=== PATIENT | female | born 1945 | race Caucasian/White ===

== ENCOUNTER 2018-02-13 20:08 | Emergency (ER) | payer MEDICARE, MEDICAID ==
[~2018-02-13] VITALS: Ht 165.1 cm; Wt 68.0 kg
[~2018-02-13 20:08] MED LIST: ALEN70TA48 PO; AMLO1TAB12 PO; CARCD120C PO; FLUO-1 PO; LORA10TA61 PO; METF-436 PO; METO50TA17 PO; NITR100C6 PO; POTA8TAB8 PO; TRAZ-146 PO
[2018-02-13 20:31] VITALS: BP 138/82
[2018-02-13 21:31] LABS: BASOPHILS % (AUTO) 0.5 % (0-1); EOSINOPHILS # (AUTO) 0.4 X10'3 (0-0.9); EOSINOPHILS % (AUTO) 5.9 % (0-6); HEMATOCRIT 35.6 % (35.0-45.0); HEMOGLOBIN 11.9 g/dl (12.0-16.0); LYMPHOCYTES % (AUTO) 30.7 % (21-51); MEAN CORPUSCULAR HGB CONC 33.3 % (33.0-36.5); MEAN PLATELET VOLUME 7.6 FL (7.4-10.4); MONOCYTES # (AUTO) 0.6 X10'3 (0-0.9); NEUTROPHILS # (AUTO) 3.6 X10'3 (1.8-7.7); NEUTROPHILS % (AUTO) 53.9 % (42-75); PLATELET COUNT 306 X10'3 (140-440); RED BLOOD COUNT 4.24 X10'6 (4.20-5.60); RED CELL DISTRIBUTION WIDTH 15.6 % (11.5-14.5); WHITE BLOOD COUNT 6.7 X10'3 (4.5-11.0)
[2018-02-13] MEDS ORDERED: AMLO1TAB12 PO (21:40)
[2018-02-13] MEDS ORDERED: BACL10TA PO (21:40)
[2018-02-13] MEDS ORDERED: LORA10TA7 PO (21:40)
[2018-02-13] MEDS ORDERED: POTA8TAB8 PO (21:40)
[2018-02-13] MEDS ORDERED: CYCL-1 PO (21:40)
[2018-02-13] MEDS ORDERED: GABA-534 PO (21:40)
[2018-02-13] MEDS ORDERED: OMEP20CA10 PO (21:40)
[2018-02-13] MEDS ORDERED: DILT-35 PO (21:40)
[2018-02-13] MEDS ORDERED: PIOG15TA8 PO (21:40)
[2018-02-13] MEDS ORDERED: NITR100C6 PO (21:40)
[2018-02-13] MEDS ORDERED: FLUO20CA22 PO (21:40)
[2018-02-13] MEDS ORDERED: GLIP10TA11 PO (21:40)
[2018-02-13 21:50] LABS: ALANINE AMINOTRANSFERASE 13 U/L (12-78); ALBUMIN 3.5 G/DL (3.4-5.0); ALBUMIN/GLOBULIN RATIO 0.9 (1.1-1.5); ALKALINE PHOSPHATASE 71 IU/L (46-116); ANION GAP 8 (8-16); ASPARTATE AMINO TRANSFERASE 15 U/L (10-37); BILIRUBIN,TOTAL 0.2 MG/DL (0.1-1.0); BLOOD UREA NITROGEN 22 MG/DL (7-18); BUN/CREATININE RATIO 24.4 (6.6-38.0); CALCIUM 9.2 MG/DL (8.5-10.1); CHLORIDE 105 MMOL/L (99-107); GLUCOSE 144 MG/DL (70-104); POTASSIUM 3.7 MMOL/L (3.5-5.1); SODIUM 143 MMOL/L (135-145); TOTAL CARBON DIOXIDE 30.2 MMOL/L (24-32); TOTAL PROTEIN 7.4 G/DL (6.4-8.2); eGFR 61 ML/MIN
[2018-02-13 22:02] LABS: MAGNESIUM 1.9 MG/DL (1.5-2.4)
== END 2018-02-13 22:39 | disposition home or self-care (01) ==
LOC: ER 20:08
DX: R07.89 Other chest pain (principal); R11.0 Nausea; R06.02 Shortness of breath; E78.00 Pure hypercholesterolemia, unspecified; I10 Essential (primary) hypertension; I25.2 Old myocardial infarction; K21.9 Gastro-esophageal reflux disease without esophagitis; E11.9 Type 2 diabetes mellitus without complications; G89.29 Other chronic pain; Z98.61 Coronary angioplasty status; Z98.890 Other specified postprocedural states; Z88.0 Allergy status to penicillin; Z88.2 Allergy status to sulfonamides; Z88.8 Allergy status to other drugs, medicaments and biological substances; Z79.2 Long term (current) use of antibiotics; Z79.84 Long term (current) use of oral hypoglycemic drugs; Z79.899 Other long term (current) drug therapy
CPT/HCPCS: 36415; 71045; 80053; 83735; 83880; 84484; 85025; 85379; 93005; 99285

== ENCOUNTER 2018-03-12 12:31 | Emergency (ER) | payer MEDICARE, MEDICAID ==
[~2018-03-12] VITALS: Ht 165.1 cm; Wt 63.6 kg
[~2018-03-12 12:31] MED LIST changes: -ALEN70TA48 PO; +BACL10TA PO; -CARCD120C PO; +CYCL-1 PO; +DILT-35 PO; -FLUO-1 PO; +FLUO20CA22 PO; +GABA-534 PO; +GLIP10TA11 PO; -LORA10TA61 PO; +LORA10TA7 PO; -METO50TA17 PO; +OMEP20CA10 PO; +PIOG15TA8 PO; -TRAZ-146 PO
[2018-03-12 13:18] LABS: BASOPHILS % (AUTO) 0.3 % (0-1); EOSINOPHILS # (AUTO) 0.4 X10'3 (0-0.9); EOSINOPHILS % (AUTO) 7.3 % (0-6); HEMATOCRIT 32.3 % (35.0-45.0); HEMOGLOBIN 10.8 g/dl (12.0-16.0); LYMPHOCYTES # (AUTO) 1.6 X10'3 (1.1-4.8); LYMPHOCYTES % (AUTO) 30.1 % (21-51); MEAN CORPUSCULAR HEMOGLOBIN 27.7 PG (27.0-31.0); MEAN CORPUSCULAR HGB CONC 33.3 % (33.0-36.5); MEAN CORPUSCULAR VOLUME 82.9 FL (78-98); MONOCYTES # (AUTO) 0.5 X10'3 (0-0.9); MONOCYTES % (AUTO) 8.4 % (2-12); NEUTROPHILS % (AUTO) 53.9 % (42-75); PLATELET COUNT 258 X10'3 (140-440); RED BLOOD COUNT 3.89 X10'6 (4.20-5.60); RED CELL DISTRIBUTION WIDTH 16.2 % (11.5-14.5); WHITE BLOOD COUNT 5.5 X10'3 (4.5-11.0)
[2018-03-12] MEDS ORDERED: mag hydrox/Alum hydrox/simeth 30ml oral suspension PO ONE (13:25)
[2018-03-12] MEDS ORDERED: LORazepam 2 mg/ml vial IV ONE (13:25)
[2018-03-12] MEDS ORDERED: LIDOcaine Viscous 15ml cup PO ONE (13:25)
[2018-03-12 13:31] LABS: PARTIAL THROMBOPLASTIN TIME 24 SECONDS (22-32); PROTHROMBIN TIME 10.1 SECONDS (9.0-12.0)
[2018-03-12 13:37] LABS: ALANINE AMINOTRANSFERASE 16 U/L (12-78); ALBUMIN 3.4 G/DL (3.4-5.0); ALKALINE PHOSPHATASE 67 IU/L (46-116); ANION GAP 8 (8-16); ASPARTATE AMINO TRANSFERASE 23 U/L (10-37); BILIRUBIN,TOTAL 0.3 MG/DL (0.1-1.0); BLOOD UREA NITROGEN 12 MG/DL (7-18); BUN/CREATININE RATIO 13.5 (6.6-38.0); CALCIUM 8.6 MG/DL (8.5-10.1); CHLORIDE 107 MMOL/L (99-107); CREATININE 0.89 MG/DL (0.40-0.90); GLUCOSE 114 MG/DL (70-104); POTASSIUM 3.5 MMOL/L (3.5-5.1); SODIUM 143 MMOL/L (135-145); TOTAL CARBON DIOXIDE 27.6 MMOL/L (24-32); TOTAL PROTEIN 6.9 G/DL (6.4-8.2); eGFR 62 ML/MIN
[2018-03-12 13:44] LABS: LIPASE 153 U/L (73-393); MAGNESIUM 1.3 MG/DL (1.5-2.4)
[2018-03-12 15:36] VITALS: BP 151/89
== END 2018-03-12 16:53 | disposition home or self-care (01) ==
LOC: ER 12:32
DX: R07.9 Chest pain, unspecified (principal); E78.00 Pure hypercholesterolemia, unspecified; I10 Essential (primary) hypertension; I25.2 Old myocardial infarction; K21.9 Gastro-esophageal reflux disease without esophagitis; E11.9 Type 2 diabetes mellitus without complications; Z90.89 Acquired absence of other organs; Z88.0 Allergy status to penicillin; Z88.2 Allergy status to sulfonamides; Z79.899 Other long term (current) drug therapy; Z79.84 Long term (current) use of oral hypoglycemic drugs
CPT/HCPCS: 36415; 71045; 80053; 82948; 83690; 83735; 83880; 84484; 85025; 85610; 85730; 93005; 96374; 99285; J2060

== ENCOUNTER 2018-03-13 20:28 | Emergency (ER) | payer MEDICARE, MEDICAID ==
[~2018-03-13] VITALS: Ht 167.6 cm; Wt 61.0 kg
[2018-03-13 21:28] VITALS: BP 135/71
== END 2018-03-13 21:39 | disposition home or self-care (01) ==
LOC: ER 20:28
DX: F41.9 Anxiety disorder, unspecified (principal); E78.00 Pure hypercholesterolemia, unspecified; I10 Essential (primary) hypertension; I25.2 Old myocardial infarction; K21.9 Gastro-esophageal reflux disease without esophagitis; E11.9 Type 2 diabetes mellitus without complications; G89.29 Other chronic pain; Z98.61 Coronary angioplasty status; Z90.89 Acquired absence of other organs; Z88.0 Allergy status to penicillin; Z88.2 Allergy status to sulfonamides; Z88.8 Allergy status to other drugs, medicaments and biological substances; Z79.84 Long term (current) use of oral hypoglycemic drugs; Z79.899 Other long term (current) drug therapy
CPT/HCPCS: 93005; 99284

== ENCOUNTER 2018-03-16 17:51 | Emergency (ER) | payer MEDICARE, MEDICAID ==
[~2018-03-16] VITALS: Ht 578.2 cm; Wt 59.1 kg
[2018-03-16 18:11] LABS: BASOPHILS % (AUTO) 0.2 % (0-1); EOSINOPHILS # (AUTO) 0.4 X10'3 (0-0.9); HEMATOCRIT 35.9 % (35.0-45.0); HEMOGLOBIN 12.2 g/dl (12.0-16.0); LYMPHOCYTES # (AUTO) 2.1 X10'3 (1.1-4.8); LYMPHOCYTES % (AUTO) 30.1 % (21-51); MEAN CORPUSCULAR HGB CONC 34.1 % (33.0-36.5); MEAN CORPUSCULAR VOLUME 82.1 FL (78-98); MEAN PLATELET VOLUME 7.3 FL (7.4-10.4); MONOCYTES # (AUTO) 0.6 X10'3 (0-0.9); MONOCYTES % (AUTO) 8.2 % (2-12); NEUTROPHILS # (AUTO) 3.8 X10'3 (1.8-7.7); NEUTROPHILS % (AUTO) 55.5 % (42-75); PLATELET COUNT 311 X10'3 (140-440); RED BLOOD COUNT 4.37 X10'6 (4.20-5.60); RED CELL DISTRIBUTION WIDTH 16.7 % (11.5-14.5); WHITE BLOOD COUNT 6.9 X10'3 (4.5-11.0)
[2018-03-16 18:23] LABS: INR 0.9 INR; PARTIAL THROMBOPLASTIN TIME 25 SECONDS (22-32); PROTHROMBIN TIME 9.8 SECONDS (9.0-12.0)
[2018-03-16 18:27] LABS: ALANINE AMINOTRANSFERASE 21 U/L (12-78); ALBUMIN 3.6 G/DL (3.4-5.0); ALBUMIN/GLOBULIN RATIO 0.8 (1.1-1.5); ALKALINE PHOSPHATASE 72 IU/L (46-116); ANION GAP 10 (8-16); ASPARTATE AMINO TRANSFERASE 20 U/L (10-37); BILIRUBIN,TOTAL 0.2 MG/DL (0.1-1.0); BLOOD UREA NITROGEN 14 MG/DL (7-18); BUN/CREATININE RATIO 14.4 (6.6-38.0); CALCIUM 9.3 MG/DL (8.5-10.1); CHLORIDE 105 MMOL/L (99-107); CREATININE 0.97 MG/DL (0.40-0.90); GLUCOSE 177 MG/DL (70-104); POTASSIUM 3.3 MMOL/L (3.5-5.1); SODIUM 141 MMOL/L (135-145); TOTAL CARBON DIOXIDE 25.9 MMOL/L (24-32); TOTAL PROTEIN 7.9 G/DL (6.4-8.2); eGFR 56 ML/MIN
[2018-03-16 19:54] VITALS: BP 156/87
== END 2018-03-16 20:18 | disposition home or self-care (01) ==
LOC: ER 17:51
DX: R07.9 Chest pain, unspecified (principal); E78.00 Pure hypercholesterolemia, unspecified; I10 Essential (primary) hypertension; I25.2 Old myocardial infarction; K21.9 Gastro-esophageal reflux disease without esophagitis; E11.9 Type 2 diabetes mellitus without complications; G89.29 Other chronic pain; Z90.89 Acquired absence of other organs; Z98.61 Coronary angioplasty status; Z88.0 Allergy status to penicillin; Z79.2 Long term (current) use of antibiotics; Z79.84 Long term (current) use of oral hypoglycemic drugs; Z79.899 Other long term (current) drug therapy
CPT/HCPCS: 36415; 71045; 80053; 84484; 85025; 85610; 85730; 93005; 99285

== ENCOUNTER 2018-04-08 19:25 | Emergency (ER) | payer MEDICARE, MEDICAID ==
[~2018-04-08] VITALS: Ht 165.1 cm; Wt 56.0 kg
[2018-04-08] MEDS ORDERED: normal saline 1000ML IV soln IVB ONE (19:40)
[2018-04-08] MEDS ORDERED: morphine 4 MG/ML inj SYRINge IV PRN (19:40)
[2018-04-08 20:03] LABS: ALANINE AMINOTRANSFERASE 19 U/L (12-78); ALBUMIN 3.8 G/DL (3.4-5.0); ALKALINE PHOSPHATASE 63 IU/L (46-116); ANION GAP 8 (8-16); ASPARTATE AMINO TRANSFERASE 22 U/L (10-37); BILIRUBIN,TOTAL 0.3 MG/DL (0.1-1.0); BLOOD UREA NITROGEN 16 MG/DL (7-18); BUN/CREATININE RATIO 14.4 (6.6-38.0); CHLORIDE 104 MMOL/L (99-107); CREATININE 1.11 MG/DL (0.40-0.90); GLUCOSE 208 MG/DL (70-104); LIPASE 192 U/L (73-393); POTASSIUM 3.1 MMOL/L (3.5-5.1); SODIUM 141 MMOL/L (135-145); TOTAL CARBON DIOXIDE 28.7 MMOL/L (24-32); TOTAL PROTEIN 7.5 G/DL (6.4-8.2); eGFR 48 ML/MIN
[2018-04-08 20:04] LABS: BASOPHILS # (AUTO) 0.1 X10'3 (0-0.2); BASOPHILS % (AUTO) 0.8 % (0-1); EOSINOPHILS # (AUTO) 0.3 X10'3 (0-0.9); EOSINOPHILS % (AUTO) 4.3 % (0-6); HEMATOCRIT 39.5 % (35.0-45.0); HEMOGLOBIN 12.9 g/dl (12.0-16.0); LYMPHOCYTES # (AUTO) 2.5 X10'3 (1.1-4.8); LYMPHOCYTES % (AUTO) 33.4 % (21-51); MEAN CORPUSCULAR HEMOGLOBIN 26.8 PG (27.0-31.0); MEAN CORPUSCULAR HGB CONC 32.8 % (33.0-36.5); MEAN CORPUSCULAR VOLUME 81.8 FL (78-98); MEAN PLATELET VOLUME 7.8 FL (7.4-10.4); MONOCYTES # (AUTO) 0.7 X10'3 (0-0.9); NEUTROPHILS # (AUTO) 3.8 X10'3 (1.8-7.7); NEUTROPHILS % (AUTO) 51.5 % (42-75); PLATELET COUNT 351 X10'3 (140-440); RED BLOOD COUNT 4.83 X10'6 (4.20-5.60); RED CELL DISTRIBUTION WIDTH 15.1 % (11.5-14.5); WHITE BLOOD COUNT 7.4 X10'3 (4.5-11.0)
[2018-04-08 20:46] LABS: CLARITY,URINE CLOUDY (Clear); COLOR,URINE YELLOW (Yellow); GLUCOSE, URINE NEGATIVE (Neg); KETONES,URINE TRACE mg/dl (Neg); LEUKOCYTE ESTERASE ,URINE MODERATE (Neg); NITRITES, URINE NEGATIVE (Neg); OCCULT BLOOD,URINE NEGATIVE (Neg); PROTEIN,URINE NEGATIVE (Neg)
[2018-04-08] MEDS ORDERED: potassium Cl 20 mEq SR tablet PO ONE (20:50)
[2018-04-08 20:54] LABS: UA COLLECTION TYPE STRAIGHT CATH
[2018-04-08 20:55] LABS: BACTERIA,URINE 4+ /HPF (Neg); RBC,URINE NONE SEEN /HPF (0-2); SQUAMOUS EPITHELIAL CELL,UR FEW /LPF (FEW); WBC,URINE 20-30 /HPF (0-4)
[2018-04-08] MEDS ORDERED: ciprofloxacin 250mg tablet PO ONE (21:05)
[2018-04-08] MEDS ORDERED: CIPR-230 PO (21:06)
[2018-04-08 21:18] VITALS: BP 166/94
== END 2018-04-08 21:19 | disposition home or self-care (01) ==
LOC: ER 19:26
DX: N83.9 Noninflammatory disorder of ovary, fallopian tube and broad ligament, unspecified (principal); E78.00 Pure hypercholesterolemia, unspecified; I10 Essential (primary) hypertension; I25.2 Old myocardial infarction; K21.9 Gastro-esophageal reflux disease without esophagitis; E11.9 Type 2 diabetes mellitus without complications; G89.29 Other chronic pain; Z98.61 Coronary angioplasty status; Z98.890 Other specified postprocedural states; Z88.0 Allergy status to penicillin; Z88.2 Allergy status to sulfonamides; Z88.8 Allergy status to other drugs, medicaments and biological substances; Z79.84 Long term (current) use of oral hypoglycemic drugs; Z79.899 Other long term (current) drug therapy
CPT/HCPCS: 36415; 74176; 80053; 81001; 83690; 85025; 87077; 87088; 87186; 96374; 99285; J2270; J7030

== ENCOUNTER 2018-05-14 15:07 | Emergency (ER) | payer MEDICARE, MEDICAID ==
[~2018-05-14] VITALS: Ht 165.1 cm; Wt 59.0 kg
[2018-05-14] MEDS ORDERED: normal saline 1000ML IV soln IVB ONE (15:30)
[2018-05-14] MEDS ORDERED: morphine 4 MG/ML inj SYRINge IV PRN (15:30)
[2018-05-14] MEDS ORDERED: ondansetron/PF 4mg/2ml inj IV ONE (15:30)
[2018-05-14 15:51] LABS: BASOPHILS % (AUTO) 0.2 % (0-1); EOSINOPHILS # (AUTO) 0.4 X10'3 (0-0.9); EOSINOPHILS % (AUTO) 4.8 % (0-6); HEMOGLOBIN 12.3 g/dl (12.0-16.0); LYMPHOCYTES # (AUTO) 1.6 X10'3 (1.1-4.8); MEAN CORPUSCULAR HEMOGLOBIN 27.5 PG (27.0-31.0); MEAN CORPUSCULAR HGB CONC 33.2 % (33.0-36.5); MEAN CORPUSCULAR VOLUME 82.8 FL (78-98); MONOCYTES # (AUTO) 0.7 X10'3 (0-0.9); MONOCYTES % (AUTO) 7.6 % (2-12); NEUTROPHILS % (AUTO) 69.4 % (42-75); PLATELET COUNT 322 X10'3 (140-440); RED BLOOD COUNT 4.46 X10'6 (4.20-5.60); RED CELL DISTRIBUTION WIDTH 17.8 % (11.5-14.5); WHITE BLOOD COUNT 8.7 X10'3 (4.5-11.0)
[2018-05-14 16:03] LABS: CLARITY,URINE CLOUDY (Clear); COLOR,URINE YELLOW (Yellow); GLUCOSE, URINE NEGATIVE (Neg); KETONES,URINE NEGATIVE (Neg); LEUKOCYTE ESTERASE ,URINE LARGE (Neg); NITRITES, URINE NEGATIVE (Neg); OCCULT BLOOD,URINE TRACE-INTACT (Neg); PROTEIN,URINE TRACE mg/dl (Neg); UROBILINOGEN,URINE 0.2 E.U/dL (0.2-1.0)
[2018-05-14 16:05] LABS: UA COLLECTION TYPE CLN CATCH MIDSTREAM
[2018-05-14 16:05] LABS: ALANINE AMINOTRANSFERASE 15 U/L (12-78); ALBUMIN 3.4 G/DL (3.4-5.0); ALBUMIN/GLOBULIN RATIO 0.8 (1.1-1.5); ALKALINE PHOSPHATASE 82 IU/L (46-116); ANION GAP 11 (8-16); ASPARTATE AMINO TRANSFERASE 13 U/L (10-37); BILIRUBIN,TOTAL 0.4 MG/DL (0.1-1.0); BLOOD UREA NITROGEN 25 MG/DL (7-18); BUN/CREATININE RATIO 26.3 (6.6-38.0); CALCIUM 9.3 MG/DL (8.5-10.1); CHLORIDE 103 MMOL/L (99-107); CREATININE 0.95 MG/DL (0.40-0.90); GLUCOSE 182 MG/DL (70-104); LIPASE 142 U/L (73-393); POTASSIUM 3.6 MMOL/L (3.5-5.1); SODIUM 140 MMOL/L (135-145); TOTAL CARBON DIOXIDE 26.1 MMOL/L (24-32); TOTAL PROTEIN 7.7 G/DL (6.4-8.2); eGFR 58 ML/MIN
[2018-05-14] MEDS ORDERED: iohexol 300mg/ml 100ml inj. ONE (16:10)
[2018-05-14 16:12] LABS: MUCUS STRANDS MODERATE /LPF (Neg); SQUAMOUS EPITHELIAL CELL,UR MODERATE /LPF (FEW)
[2018-05-14 16:16] LABS: BACTERIA,URINE 4+ /HPF (Neg); RBC,URINE NONE SEEN /HPF (0-2); TRANSITIONAL EPI CELLS,URINE FEW /HPF; WBC,URINE 50-100 /HPF (0-4)
[2018-05-14] MEDS ORDERED: CIPR-230 PO (18:14)
[2018-05-14] MEDS ORDERED: ACET-3067 PO (18:17)
[2018-05-14] MEDS ORDERED: ciprofloxacin lact 400MG/200ML 200 ML IV ONE (18:20)
[2018-05-14 19:56] VITALS: BP 122/63
== END 2018-05-14 20:40 | disposition home or self-care (01) ==
LOC: ER 15:08
DX: S22.089A Unspecified fracture of T11-T12 vertebra, initial encounter for closed fracture (principal); S32.039A Unspecified fracture of third lumbar vertebra, initial encounter for closed fracture; N39.0 Urinary tract infection, site not specified; N83.9 Noninflammatory disorder of ovary, fallopian tube and broad ligament, unspecified; K57.30 Diverticulosis of large intestine without perforation or abscess without bleeding; E78.00 Pure hypercholesterolemia, unspecified; I10 Essential (primary) hypertension; I25.2 Old myocardial infarction; K21.9 Gastro-esophageal reflux disease without esophagitis; E11.9 Type 2 diabetes mellitus without complications; G89.29 Other chronic pain; Z98.61 Coronary angioplasty status; Z98.890 Other specified postprocedural states; Z88.0 Allergy status to penicillin; Z88.2 Allergy status to sulfonamides; Z88.8 Allergy status to other drugs, medicaments and biological substances; Z79.2 Long term (current) use of antibiotics; Z79.899 Other long term (current) drug therapy; X58.XXXA Exposure to other specified factors, initial encounter; Y93.89 Activity, other specified; Y92.89 Other specified places as the place of occurrence of the external cause; Y99.8 Other external cause status
CPT/HCPCS: 36415; 74177; 80053; 81001; 83690; 85025; 87077; 87088; 87186; 96365; 96375; 99285; J0744; J2270; J2405; J7030; Q9967

== ENCOUNTER 2018-05-18 20:09 | Inpatient (IN) | payer MEDICARE, MEDICAID ==
[~2018-05-18] VITALS: Ht 167.6 cm; Wt 59.0 kg
[~2018-05-18 20:09] MED LIST changes: +ACET-3067 PO; +CIPR-230 PO
[2018-05-18 21:22] LABS: BASOPHILS % (AUTO) 0.4 % (0-1); EOSINOPHILS # (AUTO) 0.4 X10'3 (0-0.9); HEMATOCRIT 34.8 % (35.0-45.0); HEMOGLOBIN 11.4 g/dl (12.0-16.0); LYMPHOCYTES # (AUTO) 1.5 X10'3 (1.1-4.8); LYMPHOCYTES % (AUTO) 13.7 % (21-51); MEAN CORPUSCULAR HEMOGLOBIN 26.9 PG (27.0-31.0); MEAN CORPUSCULAR HGB CONC 32.7 % (33.0-36.5); MEAN CORPUSCULAR VOLUME 82.3 FL (78-98); MEAN PLATELET VOLUME 7.8 FL (7.4-10.4); MONOCYTES # (AUTO) 0.9 X10'3 (0-0.9); NEUTROPHILS % (AUTO) 73.9 % (42-75); PLATELET COUNT 406 X10'3 (140-440); RED BLOOD COUNT 4.22 X10'6 (4.20-5.60); RED CELL DISTRIBUTION WIDTH 17.9 % (11.5-14.5); WHITE BLOOD COUNT 10.9 X10'3 (4.5-11.0)
[2018-05-18 21:38] LABS: ALANINE AMINOTRANSFERASE 14 U/L (12-78); ALBUMIN 3.2 G/DL (3.4-5.0); ALBUMIN/GLOBULIN RATIO 0.7 (1.1-1.5); ALKALINE PHOSPHATASE 97 IU/L (46-116); AMYLASE 34 U/L (25-115); ANION GAP 11 (8-16); ASPARTATE AMINO TRANSFERASE 14 U/L (10-37); BILIRUBIN,TOTAL 0.2 MG/DL (0.1-1.0); BLOOD UREA NITROGEN 32 MG/DL (7-18); BUN/CREATININE RATIO 31.4 (6.6-38.0); CHLORIDE 101 MMOL/L (99-107); CREATININE 1.02 MG/DL (0.40-0.90); GLUCOSE 208 MG/DL (70-104); LIPASE 125 U/L (73-393); POTASSIUM 4.1 MMOL/L (3.5-5.1); SODIUM 139 MMOL/L (135-145); TOTAL CARBON DIOXIDE 27.5 MMOL/L (24-32); TOTAL PROTEIN 7.6 G/DL (6.4-8.2); eGFR 53 ML/MIN
[2018-05-18 21:42] LABS: CALCIUM 9.2 MG/DL (8.5-10.1)
[2018-05-18] MEDS ORDERED: ondansetron/PF 4mg/2ml inj IV ONE (23:10)
[2018-05-18] MEDS ORDERED: normal saline 1000ml 1,000 ML IV ONE (23:10)
[2018-05-18] MEDS ORDERED: morphine 4 MG/ML inj SYRINge IV ONE (23:10)
[2018-05-18] MEDS ORDERED: iohexol 300mg/ml 100ml inj. ONE (23:16)
[2018-05-19 00:14] LABS: CLARITY,URINE SLIGHTLY CLOUDY (Clear); COLOR,URINE YELLOW (Yellow); GLUCOSE, URINE NEGATIVE (Neg); KETONES,URINE NEGATIVE (Neg); LEUKOCYTE ESTERASE ,URINE MODERATE (Neg); NITRITES, URINE POSITIVE (Neg); OCCULT BLOOD,URINE TRACE-INTACT (Neg); PH,URINE 5.5 (4.8-8.0); PROTEIN,URINE NEGATIVE (Neg); UROBILINOGEN,URINE 0.2 E.U/dL (0.2-1.0)
[2018-05-19 00:16] LABS: UA COLLECTION TYPE CLN CATCH MIDSTREAM
[2018-05-19 00:23] LABS: BACTERIA,URINE 4+ /HPF (Neg); RBC,URINE 0-2 /HPF (0-2); SQUAMOUS EPITHELIAL CELL,UR MODERATE /LPF (FEW); WBC,URINE 30-50 /HPF (0-4)
[2018-05-19] MEDS ORDERED: metroNIDAZOLE-Flagyl 500mg/NS 100 ML IV STA (00:43)
[2018-05-19] MEDS ORDERED: mag hydrox/Alum hydrox/simeth 30ml oral suspension PO PRN (02:25)
[2018-05-19] MEDS ORDERED: morphine 2 MG/ML inj. syringe IV PRN ×2 (02:25)
[2018-05-19] MEDS ORDERED: magnesium hydroxide 30ml (MOM) UD suspension PO PRN (02:25)
[2018-05-19] MEDS ORDERED: diphenhydrAMINE 25mg capsule PO PRN (02:25)
[2018-05-19] MEDS ORDERED: ondansetron/PF 4mg/2ml inj IV PRN (02:25)
[2018-05-19] MEDS ORDERED: diphenhydrAMINE 50 mg/ml inj IV PRN (02:25)
[2018-05-19] MEDS ORDERED: dextrose ORAL solution 15 GM/59 ML bottle PO PRN ×2 (02:25)
[2018-05-19] MEDS ORDERED: HYDROmorphone 1 mg/ml syringe IV PRN ×2 (02:25)
[2018-05-19] MEDS ORDERED: metoclopramide 5 mg/ml inj IV PRN (02:25)
[2018-05-19] MEDS ORDERED: cyclobenzaprine 10mg tablet PO PRN (02:25)
[2018-05-19] MEDS ORDERED: acetaminophen 325mg tablet PO PRN (02:25)
[2018-05-19] MEDS ORDERED: MESSAGE TO PHARMACY PO ONE (02:25)
[2018-05-19] MEDS ORDERED: bisacodyl 10mg suppository rectal RC PRN (02:25)
[2018-05-19] MEDS ORDERED: HYDROcodone/acetaminophen 10/325mg tab PO PRN (02:25)
[2018-05-19] MEDS ORDERED: acetaminophen 650mg rectal suppository RC PRN (02:25)
[2018-05-19] MEDS ORDERED: dextrose 50%-water 50ml dispensing syringe IV PRN ×2 (02:25)
[2018-05-19] MEDS ORDERED: HYDROcodone/acetaminophen 5mg/325mg tablet PO PRN (02:25)
[2018-05-19] MEDS ORDERED: insulin Lispro (HumaLOG) vial - multi-dose SQ SCH (02:25)
[2018-05-19] MEDS ORDERED: glucagon, human recombinant 1mg kit SUBCUT PRN (02:25)
[2018-05-19 02:55] LABS: HEMOGLOBIN A1C 6.7 % (4.5-6.2)
[2018-05-19] MEDS ORDERED: ciprofloxacin lact 400MG/200ML 200 ML IV ONE (03:00)
[2018-05-19] MEDS: normal saline 1000ml 1,000 ML IV SCH ×3 (03:11→21:24)
[2018-05-19] MEDS: diltiazem CD 120mg capsule (once-daily) PO SCH (07:44)
[2018-05-19] MEDS: pantoprazole 40mg Tablet.DR PO SCH (07:44)
[2018-05-19] MEDS: gabapentin 400mg capsule PO SCH ×3 (07:44→21:24)
[2018-05-19] MEDS: metroNIDAZOLE-Flagyl 500mg/NS 100 ML IV SCH ×2 (07:45→21:24)
[2018-05-19] MEDS: losartan 50mg tablet PO SCH (07:45)
[2018-05-19] MEDS: amLODIPine 5mg tablet PO SCH (07:45)
[2018-05-19] MEDS: docusate sod 100mg capsule PO SCH ×2 (07:45→21:25)
[2018-05-19] MEDS: FLUoxetine 20mg capsule PO SCH (07:45)
[2018-05-19] MEDS: baclofen 10mg tablet PO SCH ×3 (10:46→21:24)
[2018-05-19] MEDS: ciprofloxacin lact 400MG/200ML 200 ML IV SCH (15:15)
[2018-05-19 19:00] VITALS: BP 113/61
[2018-05-19] MEDS ORDERED: temazepam 15mg capsule PO PRN (21:00)
[2018-05-19] MEDS: lactobacillus rhamnosus 10,000 MMU CELLS/CAPSULE PO SCH (21:24)
[2018-05-19 23:00] VITALS: BP 140/62
[2018-05-20 03:00] VITALS: BP 97/44
[2018-05-20] MEDS: ciprofloxacin lact 400MG/200ML 200 ML IV SCH (03:29)
[2018-05-20 06:00] VITALS: BP 124/61
[2018-05-20 06:10] LABS: BASOPHILS % (AUTO) 0.4 % (0-1); EOSINOPHILS # (AUTO) 0.6 X10'3 (0-0.9); EOSINOPHILS % (AUTO) 8.1 % (0-6); HEMATOCRIT 31.9 % (35.0-45.0); HEMOGLOBIN 10.6 g/dl (12.0-16.0); LYMPHOCYTES # (AUTO) 1.3 X10'3 (1.1-4.8); LYMPHOCYTES % (AUTO) 16.7 % (21-51); MEAN CORPUSCULAR HEMOGLOBIN 27.7 PG (27.0-31.0); MEAN CORPUSCULAR HGB CONC 33.4 % (33.0-36.5); MEAN PLATELET VOLUME 7.9 FL (7.4-10.4); MONOCYTES # (AUTO) 0.8 X10'3 (0-0.9); MONOCYTES % (AUTO) 9.5 % (2-12); NEUTROPHILS # (AUTO) 5.2 X10'3 (1.8-7.7); NEUTROPHILS % (AUTO) 65.3 % (42-75); PLATELET COUNT 397 X10'3 (140-440); RED BLOOD COUNT 3.84 X10'6 (4.20-5.60); RED CELL DISTRIBUTION WIDTH 18.3 % (11.5-14.5)
[2018-05-20 06:36] LABS: ALANINE AMINOTRANSFERASE 13 U/L (12-78); ALBUMIN/GLOBULIN RATIO 0.7 (1.1-1.5); ALKALINE PHOSPHATASE 90 IU/L (46-116); ANION GAP 9 (8-16); ASPARTATE AMINO TRANSFERASE 19 U/L (10-37); BILIRUBIN,TOTAL 0.3 MG/DL (0.1-1.0); BLOOD UREA NITROGEN 21 MG/DL (7-18); BUN/CREATININE RATIO 19.4 (6.6-38.0); CALCIUM 8.6 MG/DL (8.5-10.1); CHLORIDE 106 MMOL/L (99-107); CREATININE 1.08 MG/DL (0.40-0.90); GLUCOSE 212 MG/DL (70-104); POTASSIUM 3.7 MMOL/L (3.5-5.1); SODIUM 140 MMOL/L (135-145); TOTAL CARBON DIOXIDE 25.1 MMOL/L (24-32); TOTAL PROTEIN 7.1 G/DL (6.4-8.2); eGFR 50 ML/MIN
[2018-05-20 07:25] LABS: ANISOCYTOSIS 2+; PLATELET ESTIMATE NORMAL
[2018-05-20] MEDS: lactobacillus rhamnosus 10,000 MMU CELLS/CAPSULE PO SCH (07:36)
[2018-05-20] MEDS: gabapentin 400mg capsule PO SCH ×2 (07:36→13:31)
[2018-05-20] MEDS: pantoprazole 40mg Tablet.DR PO SCH (07:37)
[2018-05-20] MEDS: diltiazem CD 120mg capsule (once-daily) PO SCH (07:37)
[2018-05-20] MEDS: docusate sod 100mg capsule PO SCH (07:38)
[2018-05-20] MEDS: baclofen 10mg tablet PO SCH ×2 (07:38→13:32)
[2018-05-20] MEDS: amLODIPine 5mg tablet PO SCH (07:38)
[2018-05-20] MEDS: FLUoxetine 20mg capsule PO SCH (07:39)
[2018-05-20] MEDS: normal saline 1000ml 1,000 ML IV SCH (07:39)
[2018-05-20] MEDS: losartan 50mg tablet PO SCH (07:42)
[2018-05-20] MEDS: metroNIDAZOLE-Flagyl 500mg/NS 100 ML IV SCH (07:43)
[2018-05-20] MEDS ORDERED: METR500T4 PO (09:18)
[2018-05-20 11:00] VITALS: BP 103/58
[2018-05-20] MEDS ORDERED: metroNIDAZOLE 500mg tablet PO SCH (20:00)
[2018-05-20] MEDS ORDERED: ciprofloxacin 250mg tablet PO SCH (22:00)
== END 2018-05-20 16:58 | disposition home or self-care (01) | DRG 690 ==
LOC: ER 20:09 → ED HOLD 05-19 02:24 → EDBEDREQ 05-19 17:26 → PCU 3S 05-19 18:15
PROVIDERS: ADMIT Family Medicine; ATTEND Internal Medicine
PROC: BW211ZZ Computerized Tomography (CT Scan) of Abdomen and Pelvis using Low Osmolar Contrast (ICD-10-PCS; principal; 2018-05-18)
DX: N39.0 Urinary tract infection, site not specified (principal); K57.32 Diverticulitis of large intestine without perforation or abscess without bleeding; I16.1 Hypertensive emergency; I25.10 Atherosclerotic heart disease of native coronary artery without angina pectoris; K21.9 Gastro-esophageal reflux disease without esophagitis; E11.65 Type 2 diabetes mellitus with hyperglycemia; E78.00 Pure hypercholesterolemia, unspecified; F41.0 Panic disorder [episodic paroxysmal anxiety]; M54.9 Dorsalgia, unspecified; I10 Essential (primary) hypertension; G89.29 Other chronic pain; H26.9 Unspecified cataract; I25.2 Old myocardial infarction; Z79.899 Other long term (current) drug therapy; Z79.84 Long term (current) use of oral hypoglycemic drugs; Z88.0 Allergy status to penicillin; Z88.2 Allergy status to sulfonamides; Z88.8 Allergy status to other drugs, medicaments and biological substances
CPT/HCPCS: 36415; 74177; 80053; 81001; 82150; 82948; 83036; 83605; 83690; 85025; 85610; 87040; 87070; 87077; 87088; 87186; 96361; 96365; 96375; 99285; J0744; J2270; J2405; J3490; J7030; Q9967

== ENCOUNTER 2018-07-07 15:11 | Emergency (ER) | payer MEDICARE, MEDICAID ==
[~2018-07-07] VITALS: Ht 166.4 cm; Wt 59.1 kg
[~2018-07-07 15:11] MED LIST changes: -ACET-3067 PO; +ASPI-611 PO; +ATOR40TA PO; -BACL10TA PO; +CARV3.122 PO; -CIPR-230 PO; -DILT-35 PO; -NITR100C6 PO; -PIOG15TA8 PO; -POTA8TAB8 PO
[2018-07-07 15:47] LABS: BASOPHILS % (AUTO) 0.4 % (0-1); EOSINOPHILS # (AUTO) 0.6 X10'3 (0-0.9); EOSINOPHILS % (AUTO) 6.9 % (0-6); HEMATOCRIT 33.3 % (35.0-45.0); HEMOGLOBIN 10.9 g/dl (12.0-16.0); LYMPHOCYTES # (AUTO) 2.1 X10'3 (1.1-4.8); LYMPHOCYTES % (AUTO) 23.6 % (21-51); MEAN CORPUSCULAR HEMOGLOBIN 26.3 PG (27.0-31.0); MEAN CORPUSCULAR HGB CONC 32.8 % (33.0-36.5); MEAN CORPUSCULAR VOLUME 80.2 FL (78-98); MEAN PLATELET VOLUME 7.4 FL (7.4-10.4); MONOCYTES # (AUTO) 0.8 X10'3 (0-0.9); MONOCYTES % (AUTO) 9.7 % (2-12); NEUTROPHILS # (AUTO) 5.2 X10'3 (1.8-7.7); NEUTROPHILS % (AUTO) 59.4 % (42-75); PLATELET COUNT 341 X10'3 (140-440); RED BLOOD COUNT 4.15 X10'6 (4.20-5.60); RED CELL DISTRIBUTION WIDTH 18.1 % (11.5-14.5); WHITE BLOOD COUNT 8.7 X10'3 (4.5-11.0)
[2018-07-07 16:00] LABS: ALANINE AMINOTRANSFERASE 17 U/L (12-78); ALBUMIN 3.1 G/DL (3.4-5.0); ALBUMIN/GLOBULIN RATIO 0.8 (1.1-1.5); ALKALINE PHOSPHATASE 69 IU/L (46-116); ANION GAP 11 (8-16); ASPARTATE AMINO TRANSFERASE 14 U/L (10-37); BILIRUBIN,TOTAL 0.2 MG/DL (0.1-1.0); BLOOD UREA NITROGEN 30 MG/DL (7-18); BUN/CREATININE RATIO 30.6 (6.6-38.0); CALCIUM 9.4 MG/DL (8.5-10.1); CHLORIDE 103 MMOL/L (99-107); CREATININE 0.98 MG/DL (0.40-0.90); GLUCOSE 183 MG/DL (70-104); LIPASE 199 U/L (73-393); POTASSIUM 3.6 MMOL/L (3.5-5.1); SODIUM 141 MMOL/L (135-145); TOTAL CARBON DIOXIDE 27.2 MMOL/L (24-32); TOTAL PROTEIN 7.1 G/DL (6.4-8.2); eGFR 56 ML/MIN
[2018-07-07 16:04] LABS: ANISOCYTOSIS 2+; ELLIPTOCYTES FEW; PLATELET ESTIMATE NORMAL; POIKILOCYTOSIS 1+
[2018-07-07] MEDS ORDERED: HYDROmorphone inj. 0.5 MG/0.5 ML DISP.SYRIN IM ONE (18:15)
[2018-07-07 18:46] LABS: CLARITY,URINE CLOUDY (Clear); COLOR,URINE YELLOW (Yellow); GLUCOSE, URINE NEGATIVE (Neg); KETONES,URINE NEGATIVE (Neg); LEUKOCYTE ESTERASE ,URINE TRACE (Neg); NITRITES, URINE POSITIVE (Neg); OCCULT BLOOD,URINE NEGATIVE (Neg); PROTEIN,URINE NEGATIVE (Neg); UROBILINOGEN,URINE 0.2 E.U/dL (0.2-1.0)
[2018-07-07 18:47] LABS: UA COLLECTION TYPE FOLEY CATH
[2018-07-07 19:01] LABS: BACTERIA,URINE 4+ /HPF (Neg); RBC,URINE NONE SEEN /HPF (0-2)
[2018-07-07 19:06] LABS: SQUAMOUS EPITHELIAL CELL,UR NONE SEEN /LPF (FEW)
[2018-07-07] MEDS ORDERED: levoFLOXACIN-Levaquin 500mg/D5 100 ML IV ONE (20:25)
[2018-07-07] MEDS ORDERED: LEVO500T2 PO (20:58)
[2018-07-07] MEDS ORDERED: METR500T4 PO (20:58)
[2018-07-07 21:54] VITALS: BP 112/66
== END 2018-07-07 22:11 | disposition home or self-care (01) ==
LOC: ER 15:12
DX: K57.92 Diverticulitis of intestine, part unspecified, without perforation or abscess without bleeding (principal); E78.00 Pure hypercholesterolemia, unspecified; I10 Essential (primary) hypertension; I25.2 Old myocardial infarction; K21.9 Gastro-esophageal reflux disease without esophagitis; E11.9 Type 2 diabetes mellitus without complications; G89.29 Other chronic pain; Z98.61 Coronary angioplasty status; Z98.890 Other specified postprocedural states; Z88.0 Allergy status to penicillin; Z88.2 Allergy status to sulfonamides; Z88.8 Allergy status to other drugs, medicaments and biological substances; Z79.82 Long term (current) use of aspirin; Z79.899 Other long term (current) drug therapy; K40.90 Unilateral inguinal hernia, without obstruction or gangrene, not specified as recurrent
CPT/HCPCS: 36415; 74176; 80053; 81001; 83690; 85025; 87077; 87088; 87186; 96365; 96372; 99285; J1170; J1956

== ENCOUNTER 2018-07-09 17:50 | Emergency (ER) | payer MEDICARE, MEDICAID ==
[~2018-07-09] VITALS: Ht 165.1 cm; Wt 59.0 kg
[~2018-07-09 17:50] MED LIST changes: +LEVO500T2 PO; +METR500T4 PO
[2018-07-09] MEDS ORDERED: aspirin 81mg tab.chew PO ONE (19:30)
[2018-07-09 20:02] LABS: BASOPHILS % (AUTO) 0.4 % (0-1); EOSINOPHILS # (AUTO) 0.6 X10'3 (0-0.9); HEMATOCRIT 34.9 % (35.0-45.0); HEMOGLOBIN 11.4 g/dl (12.0-16.0); LYMPHOCYTES # (AUTO) 1.9 X10'3 (1.1-4.8); LYMPHOCYTES % (AUTO) 22.7 % (21-51); MEAN CORPUSCULAR HEMOGLOBIN 26.4 PG (27.0-31.0); MEAN CORPUSCULAR HGB CONC 32.6 % (33.0-36.5); MEAN PLATELET VOLUME 7.4 FL (7.4-10.4); MONOCYTES # (AUTO) 0.5 X10'3 (0-0.9); MONOCYTES % (AUTO) 5.7 % (2-12); NEUTROPHILS # (AUTO) 5.2 X10'3 (1.8-7.7); NEUTROPHILS % (AUTO) 64.2 % (42-75); PLATELET COUNT 380 X10'3 (140-440); RED CELL DISTRIBUTION WIDTH 17.7 % (11.5-14.5); WHITE BLOOD COUNT 8.2 X10'3 (4.5-11.0)
[2018-07-09 20:17] LABS: ALANINE AMINOTRANSFERASE 18 U/L (12-78); ALBUMIN 3.5 G/DL (3.4-5.0); ALBUMIN/GLOBULIN RATIO 0.8 (1.1-1.5); ALKALINE PHOSPHATASE 70 IU/L (46-116); ANION GAP 8 (8-16); ASPARTATE AMINO TRANSFERASE 14 U/L (10-37); BILIRUBIN,TOTAL 0.2 MG/DL (0.1-1.0); BLOOD UREA NITROGEN 29 MG/DL (7-18); BUN/CREATININE RATIO 28.4 (6.6-38.0); CALCIUM 9.7 MG/DL (8.5-10.1); CHLORIDE 104 MMOL/L (99-107); CREATININE 1.02 MG/DL (0.40-0.90); GLUCOSE 120 MG/DL (70-104); POTASSIUM 4.2 MMOL/L (3.5-5.1); SODIUM 141 MMOL/L (135-145); TOTAL CARBON DIOXIDE 29.1 MMOL/L (24-32); TOTAL PROTEIN 7.9 G/DL (6.4-8.2); eGFR 53 ML/MIN
[2018-07-09 20:24] LABS: MAGNESIUM 1.6 MG/DL (1.5-2.4)
[2018-07-09] MEDS ORDERED: acetaminophen 325mg tablet PO ONE (20:25)
[2018-07-09 20:56] VITALS: BP 127/84
[2018-07-09] MEDS ORDERED: normal saline 1000ml 1,000 ML IV ONE (21:05)
[2018-07-09] MEDS ORDERED: ondansetron/PF 4mg/2ml inj IV ONE (22:10)
[2018-07-09] MEDS ORDERED: metroNIDAZOLE 500mg tablet PO ONE (22:10)
[2018-07-09] MEDS ORDERED: CIP750T PO (22:10)
[2018-07-09] MEDS ORDERED: METR500T4 PO ×2 (22:10→22:12)
[2018-07-09] MEDS ORDERED: ciprofloxacin 250mg tablet PO ONE (22:10)
[2018-07-09] MEDS ORDERED: CIPR-230 PO (22:12)
[2018-07-09 22:15] LABS: COLOR,URINE YELLOW (Yellow); GLUCOSE, URINE NEGATIVE (Neg); KETONES,URINE NEGATIVE (Neg); LEUKOCYTE ESTERASE ,URINE NEGATIVE (Neg); NITRITES, URINE POSITIVE (Neg); OCCULT BLOOD,URINE NEGATIVE (Neg); PROTEIN,URINE NEGATIVE (Neg); UROBILINOGEN,URINE 0.2 E.U/dL (0.2-1.0)
[2018-07-09 22:18] LABS: CLARITY,URINE SLIGHTLY CLOUDY (Clear); UA COLLECTION TYPE STRAIGHT CATH
[2018-07-09 22:22] LABS: BACTERIA,URINE 4+ /HPF (Neg); MUCUS STRANDS FEW /LPF (Neg); RBC,URINE NONE SEEN /HPF (0-2); SQUAMOUS EPITHELIAL CELL,UR FEW /LPF (FEW); WBC CLUMPS,URINE FEW /HPF (NEGATIVE)
== END 2018-07-09 22:42 | disposition home or self-care (01) ==
LOC: ER 17:51
DX: K57.32 Diverticulitis of large intestine without perforation or abscess without bleeding (principal); R07.89 Other chest pain; E78.00 Pure hypercholesterolemia, unspecified; I10 Essential (primary) hypertension; I25.2 Old myocardial infarction; K21.9 Gastro-esophageal reflux disease without esophagitis; E11.9 Type 2 diabetes mellitus without complications; G89.29 Other chronic pain; Z95.5 Presence of coronary angioplasty implant and graft; Z90.89 Acquired absence of other organs; Z88.0 Allergy status to penicillin; Z88.2 Allergy status to sulfonamides; Z79.82 Long term (current) use of aspirin; Z79.899 Other long term (current) drug therapy
CPT/HCPCS: 36415; 71045; 74176; 80053; 81001; 83605; 83735; 83880; 84484; 85025; 87077; 87088; 87186; 93005; 96374; 99285; J2405; J7030; P9612; J3490

== ENCOUNTER 2018-07-19 13:06 | Inpatient (IN) | payer MEDICARE, MEDICAID ==
[~2018-07-19] VITALS: Ht 167.6 cm; Wt 59.0 kg
[~2018-07-19 13:06] MED LIST changes: +CIP750T PO; +CIPR-230 PO; -LEVO500T2 PO
[2018-07-19 14:44] LABS: BASOPHILS % (AUTO) 0.3 % (0-1); EOSINOPHILS # (AUTO) 0.3 X10'3 (0-0.9); EOSINOPHILS % (AUTO) 3.7 % (0-6); HEMATOCRIT 33.8 % (35.0-45.0); HEMOGLOBIN 10.8 g/dl (12.0-16.0); LYMPHOCYTES # (AUTO) 1.5 X10'3 (1.1-4.8); LYMPHOCYTES % (AUTO) 20.1 % (21-51); MEAN CORPUSCULAR HEMOGLOBIN 25.8 PG (27.0-31.0); MEAN CORPUSCULAR VOLUME 80.6 FL (78-98); MEAN PLATELET VOLUME 6.7 FL (7.4-10.4); MONOCYTES # (AUTO) 0.5 X10'3 (0-0.9); MONOCYTES % (AUTO) 7.1 % (2-12); NEUTROPHILS % (AUTO) 68.8 % (42-75); PLATELET COUNT 443 X10'3 (140-440); RED BLOOD COUNT 4.19 X10'6 (4.20-5.60); RED CELL DISTRIBUTION WIDTH 17.7 % (11.5-14.5); WHITE BLOOD COUNT 7.3 X10'3 (4.5-11.0)
[2018-07-19 14:52] LABS: PROTHROMBIN TIME 10.1 SECONDS (9.0-12.0)
[2018-07-19] MEDS ORDERED: HYDROcodone/acetaminophen 10/325mg tab PO ONE (15:15)
[2018-07-19] MEDS ORDERED: normal saline 1000ML IV soln IVB ONE (15:20)
[2018-07-19 15:21] LABS: ALANINE AMINOTRANSFERASE 14 U/L (12-78); ALBUMIN 3.4 G/DL (3.4-5.0); ALBUMIN/GLOBULIN RATIO 0.8 (1.1-1.5); ALKALINE PHOSPHATASE 71 IU/L (46-116); ANION GAP 10 (8-16); ASPARTATE AMINO TRANSFERASE 13 U/L (10-37); BILIRUBIN,TOTAL 0.2 MG/DL (0.1-1.0); BLOOD UREA NITROGEN 30 MG/DL (7-18); BUN/CREATININE RATIO 29.4 (6.6-38.0); CALCIUM 9.5 MG/DL (8.5-10.1); CHLORIDE 106 MMOL/L (99-107); CREATININE 1.02 MG/DL (0.40-0.90); GLUCOSE 178 MG/DL (70-104); POTASSIUM 3.6 MMOL/L (3.5-5.1); SODIUM 146 MMOL/L (135-145); TOTAL CARBON DIOXIDE 29.8 MMOL/L (24-32); TOTAL PROTEIN 7.5 G/DL (6.4-8.2); eGFR 53 ML/MIN
[2018-07-19] MEDS ORDERED: levoFLOXACIN-Levaquin 750MG/D5 150 ML IV ONE (16:54)
[2018-07-19] MEDS ORDERED: metroNIDAZOLE-Flagyl 500mg/NS 100 ML IV ONE (16:54)
[2018-07-19] MEDS ORDERED: potassium Cl 40MEQ/NS 500ml 500 ML IV PRN ×2 (17:10)
[2018-07-19] MEDS ORDERED: MESSAGE TO PHARMACY PO ONE (17:10)
[2018-07-19] MEDS ORDERED: ondansetron/PF 4mg/2ml inj IV PRN (17:10)
[2018-07-19] MEDS ORDERED: acetaminophen 650mg rectal suppository RC PRN (17:10)
[2018-07-19] MEDS ORDERED: dextrose ORAL solution 15 GM/59 ML bottle PO PRN ×2 (17:10)
[2018-07-19] MEDS ORDERED: insulin Lispro (HumaLOG) vial - multi-dose SQ SCH (17:10)
[2018-07-19] MEDS ORDERED: magnesium hydroxide 30ml (MOM) UD suspension PO PRN (17:10)
[2018-07-19] MEDS ORDERED: magnesium 1gm/100ml D5W IVPB 100 ML IV PRN (17:10)
[2018-07-19] MEDS ORDERED: diphenhydrAMINE 50 mg/ml inj IV PRN (17:10)
[2018-07-19] MEDS ORDERED: acetaminophen 325mg tablet PO PRN ×2 (17:10)
[2018-07-19] MEDS ORDERED: dextrose 50%-water 50ml dispensing syringe IV PRN ×2 (17:10)
[2018-07-19] MEDS ORDERED: diphenhydrAMINE 25mg capsule PO PRN (17:10)
[2018-07-19] MEDS ORDERED: metoclopramide 5 mg/ml inj IV PRN (17:10)
[2018-07-19] MEDS ORDERED: glucagon, human recombinant 1mg kit SUBCUT PRN (17:10)
[2018-07-19] MEDS ORDERED: bisacodyl 10mg suppository rectal RC PRN (17:10)
[2018-07-19] MEDS ORDERED: HYDROcodone/acetaminophen 5mg/325mg tablet PO PRN (17:10)
[2018-07-19] MEDS ORDERED: potassium Cl 20 mEq SR tablet PO PRN (17:10)
[2018-07-19] MEDS ORDERED: morphine 2 MG/ML inj. syringe IV PRN (17:10)
[2018-07-19] MEDS: K and/or MAG REPLACEMENT MC SCH (17:10)
[2018-07-19] MEDS: normal saline 1000ml 1,000 ML IV SCH (17:10)
[2018-07-19] MEDS ORDERED: magnesium 4gm in 100ml NS 100 ML IV PRN (17:10)
[2018-07-19] MEDS: morphine 2 MG/ML inj. syringe IV PRN ×2 (18:56→22:51)
[2018-07-19 19:47] LABS: CLARITY,URINE CLOUDY (Clear); COLOR,URINE YELLOW (Yellow); GLUCOSE, URINE NEGATIVE (Neg); KETONES,URINE NEGATIVE (Neg); LEUKOCYTE ESTERASE ,URINE LARGE (Neg); NITRITES, URINE POSITIVE (Neg); OCCULT BLOOD,URINE TRACE-INTACT (Neg); PROTEIN,URINE NEGATIVE (Neg); UROBILINOGEN,URINE 0.2 E.U/dL (0.2-1.0)
[2018-07-19 19:51] LABS: UA COLLECTION TYPE CLN CATCH MIDSTREAM
[2018-07-19 20:00] LABS: BACTERIA,URINE 4+ /HPF (Neg); RBC,URINE NONE SEEN /HPF (0-2); RENAL CELLS, URINE FEW /HPF; SQUAMOUS EPITHELIAL CELL,UR FEW /LPF (FEW); TRANSITIONAL EPI CELLS,URINE MODERATE /HPF
[2018-07-19 20:20] VITALS: BP 172/103
[2018-07-19] MEDS: mag hydrox/Alum hydrox/simeth 30ml oral suspension PO PRN (20:22)
[2018-07-19] MEDS: heparin, porcine 5000 units/ml vial SQ SCH (20:23)
[2018-07-19] MEDS ORDERED: temazepam 15mg capsule PO PRN (21:00)
[2018-07-19] MEDS: insulin glargine (Lantus) pen - multi-dose SQ SCH (21:00)
[2018-07-19] MEDS ORDERED: pantoprazole 40 MG vial IV ONE (21:30)
[2018-07-19 22:00] VITALS: BP 152/87
[2018-07-19] MEDS ORDERED: ASPI-611 PO (23:27)
[2018-07-19] MEDS ORDERED: ATOR40TA PO (23:33)
[2018-07-19] MEDS ORDERED: METR500T PO (23:36)
[2018-07-19] MEDS ORDERED: CARV3.12 PO (23:55)
[2018-07-20] MEDS ORDERED: CIP750T PO
[2018-07-20] MEDS ORDERED: CIPR-259 PO
[2018-07-20] MEDS: metroNIDAZOLE-Flagyl 500mg/NS 100 ML IV SCH ×4 (00:34→23:59)
[2018-07-20] MEDS: normal saline 1000ml 1,000 ML IV SCH ×3 (01:10→17:16)
[2018-07-20 06:00] VITALS: BP 107/67
[2018-07-20] MEDS: heparin, porcine 5000 units/ml vial SQ SCH ×2 (07:19→19:47)
[2018-07-20] MEDS: HYDROcodone/acetaminophen 10/325mg tab PO PRN ×2 (07:20→15:39)
[2018-07-20] MEDS ORDERED: pantoprazole 40 MG vial IV SCH (08:00)
[2018-07-20] MEDS: K and/or MAG REPLACEMENT MC SCH (08:00)
[2018-07-20] MEDS: levoFLOXACIN-Levaquin 750MG/D5 150 ML IV SCH (08:43)
[2018-07-20 10:00] VITALS: BP 101/51
[2018-07-20 11:35] LABS: BASOPHILS % (AUTO) 0.3 % (0-1); EOSINOPHILS # (AUTO) 0.3 X10'3 (0-0.9); EOSINOPHILS % (AUTO) 6.9 % (0-6); HEMATOCRIT 26.5 % (35.0-45.0); HEMOGLOBIN 8.6 g/dl (12.0-16.0); LYMPHOCYTES # (AUTO) 1.4 X10'3 (1.1-4.8); LYMPHOCYTES % (AUTO) 29.3 % (21-51); MEAN CORPUSCULAR HEMOGLOBIN 26.3 PG (27.0-31.0); MEAN CORPUSCULAR HGB CONC 32.5 % (33.0-36.5); MEAN CORPUSCULAR VOLUME 80.9 FL (78-98); MEAN PLATELET VOLUME 7.3 FL (7.4-10.4); MONOCYTES # (AUTO) 0.4 X10'3 (0-0.9); MONOCYTES % (AUTO) 7.5 % (2-12); NEUTROPHILS # (AUTO) 2.7 X10'3 (1.8-7.7); PLATELET COUNT 309 X10'3 (140-440); RED BLOOD COUNT 3.28 X10'6 (4.20-5.60); RED CELL DISTRIBUTION WIDTH 17.9 % (11.5-14.5); WHITE BLOOD COUNT 4.8 X10'3 (4.5-11.0)
[2018-07-20 11:59] LABS: ALANINE AMINOTRANSFERASE 10 U/L (12-78); ALBUMIN 2.5 G/DL (3.4-5.0); ALBUMIN/GLOBULIN RATIO 0.8 (1.1-1.5); ALKALINE PHOSPHATASE 58 IU/L (46-116); ANION GAP 8 (8-16); ASPARTATE AMINO TRANSFERASE 13 U/L (10-37); BILIRUBIN,TOTAL 0.2 MG/DL (0.1-1.0); BLOOD UREA NITROGEN 18 MG/DL (7-18); BUN/CREATININE RATIO 20.7 (6.6-38.0); CHLORIDE 107 MMOL/L (99-107); CHOL/HDL RATIO 2.9 (0.00-4.99); CHOLESTEROL 83 MG/DL (0-200); CREATININE 0.87 MG/DL (0.40-0.90); GLUCOSE 186 MG/DL (70-104); HDL CHOLESTEROL 29 MG/DL (35-60); LDL CHOLESTEROL 40 MG/DL (50-100); MAGNESIUM 1.4 MG/DL (1.5-2.4); PHOSPHORUS 2.5 MG/DL (2.3-4.5); POTASSIUM 3.3 MMOL/L (3.5-5.1); SODIUM 141 MMOL/L (135-145); TOTAL CARBON DIOXIDE 25.7 MMOL/L (24-32); TOTAL PROTEIN 5.8 G/DL (6.4-8.2); TRIGLYCERIDES 81 MG/DL (20-135); eGFR 64 ML/MIN
[2018-07-20] MEDS: potassium Cl 20 mEq SR tablet PO PRN ×2 (13:06→19:47)
[2018-07-20 18:00] VITALS: BP 149/67
[2018-07-20] MEDS ORDERED: cyclobenzaprine 10mg tablet PO PRN (19:55)
[2018-07-20] MEDS: insulin glargine (Lantus) pen - multi-dose SQ SCH (21:00)
[2018-07-20 22:00] VITALS: BP 150/83
[2018-07-20] MEDS: gabapentin 400mg capsule PO SCH (23:59)
[2018-07-20] MEDS: carVEDilol 3.125mg tablet PO SCH (23:59)
[2018-07-21] MEDS: potassium Cl 20 mEq SR tablet PO PRN (00:03)
[2018-07-21] MEDS: normal saline 1000ml 1,000 ML IV SCH ×3 (01:10→17:08)
[2018-07-21 06:00] VITALS: BP 143/79
[2018-07-21 06:23] LABS: BASOPHILS % (AUTO) 0.4 % (0-1); EOSINOPHILS # (AUTO) 0.4 X10'3 (0-0.9); EOSINOPHILS % (AUTO) 6.9 % (0-6); HEMATOCRIT 27.7 % (35.0-45.0); LYMPHOCYTES # (AUTO) 1.5 X10'3 (1.1-4.8); LYMPHOCYTES % (AUTO) 25.4 % (21-51); MEAN CORPUSCULAR HEMOGLOBIN 26.1 PG (27.0-31.0); MEAN CORPUSCULAR HGB CONC 32.6 % (33.0-36.5); MEAN CORPUSCULAR VOLUME 80.2 FL (78-98); MEAN PLATELET VOLUME 7.2 FL (7.4-10.4); MONOCYTES # (AUTO) 0.5 X10'3 (0-0.9); MONOCYTES % (AUTO) 8.1 % (2-12); NEUTROPHILS # (AUTO) 3.4 X10'3 (1.8-7.7); NEUTROPHILS % (AUTO) 59.2 % (42-75); PLATELET COUNT 339 X10'3 (140-440); RED BLOOD COUNT 3.45 X10'6 (4.20-5.60); RED CELL DISTRIBUTION WIDTH 17.5 % (11.5-14.5); WHITE BLOOD COUNT 5.8 X10'3 (4.5-11.0)
[2018-07-21 07:20] LABS: % IRON SATURATION 5 % (11-46); IRON 15 UG/DL (49-151); TOTAL IRON BINDING CAPACITY 281 UG/DL (259-388)
[2018-07-21 07:46] LABS: ALANINE AMINOTRANSFERASE 9 U/L (12-78); ALBUMIN 2.7 G/DL (3.4-5.0); ALBUMIN/GLOBULIN RATIO 0.8 (1.1-1.5); ALKALINE PHOSPHATASE 62 IU/L (46-116); ANION GAP 9 (8-16); ASPARTATE AMINO TRANSFERASE 14 U/L (10-37); BILIRUBIN,TOTAL 0.2 MG/DL (0.1-1.0); BLOOD UREA NITROGEN 12 MG/DL (7-18); BUN/CREATININE RATIO 16.2 (6.6-38.0); CALCIUM 8.4 MG/DL (8.5-10.1); CHLORIDE 111 MMOL/L (99-107); CREATININE 0.74 MG/DL (0.40-0.90); FERRITIN 12 NG/ML (8-252); GLUCOSE 98 MG/DL (70-104); MAGNESIUM 1.4 MG/DL (1.5-2.4); PHOSPHORUS 2.7 MG/DL (2.3-4.5); POTASSIUM 4.1 MMOL/L (3.5-5.1); SODIUM 144 MMOL/L (135-145); TOTAL CARBON DIOXIDE 24.1 MMOL/L (24-32); TOTAL PROTEIN 6.1 G/DL (6.4-8.2); eGFR 77 ML/MIN
[2018-07-21] MEDS ORDERED: non-formulary drug (Omeprazole 1 CAP) PO SCH (08:00)
[2018-07-21] MEDS ORDERED: VALSARTAN PO SCH (08:00)
[2018-07-21] MEDS ORDERED: non-formulary drug (Aspirin (Aspir 81) 1 TAB) PO SCH (08:00)
[2018-07-21] MEDS ORDERED: non-formulary drug (Atorvastatin Calcium* (Lipitor*) 1 TAB) PO SCH (08:00)
[2018-07-21] MEDS ORDERED: AMLODIPINE PO SCH (08:00)
[2018-07-21] MEDS: K and/or MAG REPLACEMENT MC SCH (08:18)
[2018-07-21] MEDS: pantoprazole 40mg Tablet.DR PO SCH (08:26)
[2018-07-21] MEDS: losartan 50mg tablet PO SCH (08:30)
[2018-07-21] MEDS: carVEDilol 3.125mg tablet PO SCH ×2 (08:30→19:36)
[2018-07-21] MEDS: amLODIPine 5mg tablet PO SCH (08:30)
[2018-07-21] MEDS: atorvastatin 20mg tablet PO SCH (08:31)
[2018-07-21] MEDS: aspirin 81mg tablet.DR PO SCH (08:31)
[2018-07-21] MEDS: gabapentin 400mg capsule PO SCH ×3 (08:31→20:34)
[2018-07-21] MEDS: FLUoxetine 20mg capsule PO SCH (08:31)
[2018-07-21] MEDS: heparin, porcine 5000 units/ml vial SQ SCH ×2 (08:32→19:37)
[2018-07-21] MEDS: magnesium Cl slow-release 64mg tablet PO PRN ×2 (08:32→20:34)
[2018-07-21] MEDS: levoFLOXACIN-Levaquin 750MG/D5 150 ML IV SCH (08:33)
[2018-07-21] MEDS: metroNIDAZOLE-Flagyl 500mg/NS 100 ML IV SCH ×3 (08:33→23:25)
[2018-07-21] MEDS: HYDROcodone/acetaminophen 10/325mg tab PO PRN ×2 (08:33→21:40)
[2018-07-21 11:00] VITALS: BP 94/72
[2018-07-21 18:00] VITALS: BP 102/46
[2018-07-21] MEDS ORDERED: PEG 3350/Na sulf,bicarb,Cl/KCl oral sol 4 liter bottle PO ONE (18:00)
[2018-07-21] MEDS: insulin glargine (Lantus) pen - multi-dose SQ SCH (20:34)
[2018-07-21 22:00] VITALS: BP 128/66
[2018-07-21] MEDS: mag hydrox/Alum hydrox/simeth 30ml oral suspension PO PRN (23:25)
[2018-07-22] MEDS: normal saline 1000ml 1,000 ML IV SCH ×3 (04:01→17:27)
[2018-07-22 06:00] VITALS: BP 162/87
[2018-07-22 07:11] LABS: BASOPHILS % (AUTO) 0.3 % (0-1); EOSINOPHILS # (AUTO) 0.3 X10'3 (0-0.9); EOSINOPHILS % (AUTO) 5.2 % (0-6); HEMATOCRIT 31.9 % (35.0-45.0); HEMOGLOBIN 10.4 g/dl (12.0-16.0); LYMPHOCYTES # (AUTO) 1.3 X10'3 (1.1-4.8); MEAN CORPUSCULAR HEMOGLOBIN 26.3 PG (27.0-31.0); MEAN CORPUSCULAR HGB CONC 32.7 % (33.0-36.5); MEAN CORPUSCULAR VOLUME 80.6 FL (78-98); MEAN PLATELET VOLUME 7.4 FL (7.4-10.4); MONOCYTES # (AUTO) 0.6 X10'3 (0-0.9); NEUTROPHILS # (AUTO) 3.9 X10'3 (1.8-7.7); NEUTROPHILS % (AUTO) 63.5 % (42-75); PLATELET COUNT 344 X10'3 (140-440); RED BLOOD COUNT 3.96 X10'6 (4.20-5.60); RED CELL DISTRIBUTION WIDTH 17.8 % (11.5-14.5); WHITE BLOOD COUNT 6.1 X10'3 (4.5-11.0)
[2018-07-22] MEDS: pantoprazole 40mg Tablet.DR PO SCH (07:30)
[2018-07-22 07:32] LABS: ALANINE AMINOTRANSFERASE 10 U/L (12-78); ALBUMIN 2.8 G/DL (3.4-5.0); ALBUMIN/GLOBULIN RATIO 0.8 (1.1-1.5); ALKALINE PHOSPHATASE 65 IU/L (46-116); ANION GAP 8 (8-16); ASPARTATE AMINO TRANSFERASE 14 U/L (10-37); BILIRUBIN,TOTAL 0.2 MG/DL (0.1-1.0); BLOOD UREA NITROGEN 8 MG/DL (7-18); CALCIUM 8.6 MG/DL (8.5-10.1); CHLORIDE 109 MMOL/L (99-107); GLUCOSE 118 MG/DL (70-104); MAGNESIUM 1.5 MG/DL (1.5-2.4); PHOSPHORUS 2.3 MG/DL (2.3-4.5); POTASSIUM 3.9 MMOL/L (3.5-5.1); SODIUM 144 MMOL/L (135-145); TOTAL PROTEIN 6.4 G/DL (6.4-8.2); eGFR 70 ML/MIN
[2018-07-22] MEDS: K and/or MAG REPLACEMENT MC SCH (08:00)
[2018-07-22] MEDS: amLODIPine 5mg tablet PO SCH (08:00)
[2018-07-22] MEDS: gabapentin 400mg capsule PO SCH ×3 (08:00→21:08)
[2018-07-22] MEDS: aspirin 81mg tablet.DR PO SCH (08:00)
[2018-07-22] MEDS: heparin, porcine 5000 units/ml vial SQ SCH ×2 (08:00→19:49)
[2018-07-22] MEDS: atorvastatin 20mg tablet PO SCH (08:00)
[2018-07-22] MEDS: losartan 50mg tablet PO SCH (08:00)
[2018-07-22] MEDS: carVEDilol 3.125mg tablet PO SCH ×2 (08:00→19:44)
[2018-07-22] MEDS: levoFLOXACIN-Levaquin 750MG/D5 150 ML IV SCH (09:00)
[2018-07-22] MEDS: FLUoxetine 20mg capsule PO SCH (09:00)
[2018-07-22] MEDS: HYDROcodone/acetaminophen 10/325mg tab PO PRN ×2 (09:06→23:20)
[2018-07-22 10:00] VITALS: BP 157/88
[2018-07-22] MEDS: metroNIDAZOLE-Flagyl 500mg/NS 100 ML IV SCH ×3 (10:25→23:56)
[2018-07-22] MEDS: CefTRIAXone/D5W-Rocephin 1gm 50 ML IV SCH (12:02)
[2018-07-22] MEDS ORDERED: PEG 3350/Na sulf,bicarb,Cl/KCl oral sol 4 liter bottle PO ONE (14:35)
[2018-07-22 18:00] VITALS: BP 172/82
[2018-07-22] MEDS: insulin glargine (Lantus) pen - multi-dose SQ SCH (21:00)
[2018-07-22 22:00] VITALS: BP 126/80
[2018-07-23] VITALS (7 sets, daily range): BP systolic 102–151; BP diastolic 63–73
[2018-07-23] MEDS: normal saline 1000ml 1,000 ML IV SCH ×3 (04:54→17:47)
[2018-07-23] MEDS: HYDROcodone/acetaminophen 10/325mg tab PO PRN (05:44)
[2018-07-23 06:54] LABS: BASOPHILS % (AUTO) 0.3 % (0-1); EOSINOPHILS # (AUTO) 0.2 X10'3 (0-0.9); EOSINOPHILS % (AUTO) 3.5 % (0-6); HEMATOCRIT 30.9 % (35.0-45.0); LYMPHOCYTES # (AUTO) 1.3 X10'3 (1.1-4.8); LYMPHOCYTES % (AUTO) 21.3 % (21-51); MEAN CORPUSCULAR HGB CONC 32.4 % (33.0-36.5); MEAN CORPUSCULAR VOLUME 80.3 FL (78-98); MEAN PLATELET VOLUME 7.3 FL (7.4-10.4); MONOCYTES # (AUTO) 0.5 X10'3 (0-0.9); MONOCYTES % (AUTO) 8.8 % (2-12); NEUTROPHILS # (AUTO) 4.1 X10'3 (1.8-7.7); NEUTROPHILS % (AUTO) 66.1 % (42-75); PLATELET COUNT 344 X10'3 (140-440); RED BLOOD COUNT 3.84 X10'6 (4.20-5.60); RED CELL DISTRIBUTION WIDTH 17.2 % (11.5-14.5); WHITE BLOOD COUNT 6.2 X10'3 (4.5-11.0)
[2018-07-23 07:08] LABS: CARCINOEMBRYONIC ANTIGEN 2.1 ng/mL (0.0-4.7)
[2018-07-23 07:29] LABS: ALBUMIN 2.9 G/DL (3.4-5.0); ALBUMIN/GLOBULIN RATIO 0.9 (1.1-1.5); ALKALINE PHOSPHATASE 62 IU/L (46-116); ANION GAP 9 (8-16); ASPARTATE AMINO TRANSFERASE 18 U/L (10-37); BILIRUBIN,TOTAL 0.3 MG/DL (0.1-1.0); BLOOD UREA NITROGEN 8 MG/DL (7-18); BUN/CREATININE RATIO 11.1 (6.6-38.0); CALCIUM 8.1 MG/DL (8.5-10.1); CHLORIDE 109 MMOL/L (99-107); CREATININE 0.72 MG/DL (0.40-0.90); GLUCOSE 113 MG/DL (70-104); MAGNESIUM 1.4 MG/DL (1.5-2.4); PHOSPHORUS 2.6 MG/DL (2.3-4.5); POTASSIUM 3.5 MMOL/L (3.5-5.1); SODIUM 146 MMOL/L (135-145); TOTAL CARBON DIOXIDE 28.5 MMOL/L (24-32); TOTAL PROTEIN 6.3 G/DL (6.4-8.2); eGFR 79 ML/MIN
[2018-07-23 07:50] LABS: ALANINE AMINOTRANSFERASE 9 U/L (12-78)
[2018-07-23] MEDS: K and/or MAG REPLACEMENT MC SCH (08:00)
[2018-07-23] MEDS: aspirin 81mg tablet.DR PO SCH (08:00)
[2018-07-23] MEDS: metroNIDAZOLE-Flagyl 500mg/NS 100 ML IV SCH ×2 (08:00→17:44)
[2018-07-23] MEDS: heparin, porcine 5000 units/ml vial SQ SCH ×2 (08:00→19:27)
[2018-07-23] MEDS: CefTRIAXone/D5W-Rocephin 1gm 50 ML IV SCH (08:37)
[2018-07-23] MEDS: pantoprazole 40mg Tablet.DR PO SCH (08:37)
[2018-07-23] MEDS: amLODIPine 5mg tablet PO SCH (08:37)
[2018-07-23] MEDS: FLUoxetine 20mg capsule PO SCH (08:37)
[2018-07-23] MEDS: atorvastatin 20mg tablet PO SCH (08:37)
[2018-07-23] MEDS: gabapentin 400mg capsule PO SCH ×3 (08:37→20:21)
[2018-07-23] MEDS: carVEDilol 3.125mg tablet PO SCH ×2 (08:38→19:25)
[2018-07-23] MEDS: losartan 50mg tablet PO SCH (08:38)
[2018-07-23] MEDS ORDERED: MIDAZolam 5mg/5ml vial ONE (11:09)
[2018-07-23] MEDS ORDERED: fentaNYL/PF 50MCG/1 ML 2ML syringe ONE (11:09)
[2018-07-23] MEDS ORDERED: magnesium Cl slow-release 64mg tablet PO PRN (18:40)
[2018-07-23] MEDS ORDERED: potassium Cl 20 mEq SR tablet PO PRN (18:40)
[2018-07-23] MEDS ORDERED: magnesium 4gm in 100ml NS 100 ML IV PRN (18:40)
[2018-07-23] MEDS ORDERED: potassium Cl 40MEQ/NS 500ml 500 ML IV PRN ×2 (18:40)
[2018-07-23] MEDS: insulin glargine (Lantus) pen - multi-dose SQ SCH (21:00)
[2018-07-24] MEDS: normal saline 1000ml 1,000 ML IV SCH (00:16)
[2018-07-24] MEDS: metroNIDAZOLE-Flagyl 500mg/NS 100 ML IV SCH ×2 (00:16→08:48)
[2018-07-24 07:21] LABS: BASOPHILS % (AUTO) 0.5 % (0-1); EOSINOPHILS # (AUTO) 0.4 X10'3 (0-0.9); EOSINOPHILS % (AUTO) 7.5 % (0-6); HEMATOCRIT 28.8 % (35.0-45.0); HEMOGLOBIN 9.4 g/dl (12.0-16.0); LYMPHOCYTES # (AUTO) 1.4 X10'3 (1.1-4.8); LYMPHOCYTES % (AUTO) 28.2 % (21-51); MEAN CORPUSCULAR HEMOGLOBIN 25.9 PG (27.0-31.0); MEAN CORPUSCULAR HGB CONC 32.5 % (33.0-36.5); MEAN CORPUSCULAR VOLUME 79.8 FL (78-98); MONOCYTES # (AUTO) 0.4 X10'3 (0-0.9); MONOCYTES % (AUTO) 8.6 % (2-12); NEUTROPHILS # (AUTO) 2.8 X10'3 (1.8-7.7); NEUTROPHILS % (AUTO) 55.2 % (42-75); PLATELET COUNT 326 X10'3 (140-440); RED BLOOD COUNT 3.61 X10'6 (4.20-5.60); RED CELL DISTRIBUTION WIDTH 17.5 % (11.5-14.5); WHITE BLOOD COUNT 5.1 X10'3 (4.5-11.0)
[2018-07-24 07:55] LABS: ALANINE AMINOTRANSFERASE 15 U/L (12-78); ALBUMIN 2.6 G/DL (3.4-5.0); ALBUMIN/GLOBULIN RATIO 0.9 (1.1-1.5); ALKALINE PHOSPHATASE 54 IU/L (46-116); ANION GAP 9 (8-16); ASPARTATE AMINO TRANSFERASE 30 U/L (10-37); BILIRUBIN,TOTAL 0.2 MG/DL (0.1-1.0); BLOOD UREA NITROGEN 9 MG/DL (7-18); BUN/CREATININE RATIO 11.3 (6.6-38.0); CHLORIDE 109 MMOL/L (99-107); GLUCOSE 102 MG/DL (70-104); MAGNESIUM 2.3 MG/DL (1.5-2.4); PHOSPHORUS 2.7 MG/DL (2.3-4.5); SODIUM 145 MMOL/L (135-145); TOTAL CARBON DIOXIDE 27.4 MMOL/L (24-32); TOTAL PROTEIN 5.6 G/DL (6.4-8.2); eGFR 70 ML/MIN
[2018-07-24 08:00] VITALS: BP 127/68
[2018-07-24] MEDS: K and/or MAG REPLACEMENT MC SCH (08:00)
[2018-07-24] MEDS: potassium Cl 20 mEq SR tablet PO PRN ×2 (08:34→13:48)
[2018-07-24] MEDS: FLUoxetine 20mg capsule PO SCH (08:37)
[2018-07-24] MEDS: gabapentin 400mg capsule PO SCH ×2 (08:38→13:48)
[2018-07-24] MEDS: carVEDilol 3.125mg tablet PO SCH (08:38)
[2018-07-24] MEDS: atorvastatin 20mg tablet PO SCH (08:39)
[2018-07-24] MEDS: amLODIPine 5mg tablet PO SCH (08:39)
[2018-07-24] MEDS: losartan 50mg tablet PO SCH (08:39)
[2018-07-24] MEDS: aspirin 81mg tablet.DR PO SCH (08:40)
[2018-07-24] MEDS: pantoprazole 40mg Tablet.DR PO SCH (08:40)
[2018-07-24] MEDS: HYDROcodone/acetaminophen 10/325mg tab PO PRN ×2 (08:46→13:49)
[2018-07-24] MEDS: heparin, porcine 5000 units/ml vial SQ SCH (08:47)
[2018-07-24 10:00] VITALS: BP 106/67
[2018-07-24] MEDS: CefTRIAXone/D5W-Rocephin 1gm 50 ML IV SCH (10:10)
[2018-07-24] MEDS ORDERED: METR500T PO (13:59)
[2018-07-24] MEDS ORDERED: CEFD300C3 PO (13:59)
[2018-07-24] MEDS ORDERED: MAGN400O6 PO (13:59)
[2018-07-24] MEDS ORDERED: DOCU-28 PO (14:00)
[2018-07-24] MEDS ORDERED: FERR325T28 PO (14:15)
[2018-07-24] MEDS ORDERED: ASCO500C15 PO (14:15)
[2018-07-25] MEDS ORDERED: metroNIDAZOLE 500mg tablet PO SCH
== END 2018-07-24 17:48 | disposition home health service (06) | DRG 760 ==
LOC: ER 13:06 → ED HOLD 17:10 → CMPBEDREQ 20:05 → ORTHO 4S 20:12
PROVIDERS: ADMIT Family Medicine; ATTEND Family Medicine
PROC: 0DJD8ZZ Inspection of Lower Intestinal Tract, Via Natural or Artificial Opening Endoscopic (ICD-10-PCS; principal; 2018-07-23)
DX: N83.8 Other noninflammatory disorders of ovary, fallopian tube and broad ligament (principal); N39.0 Urinary tract infection, site not specified; K57.92 Diverticulitis of intestine, part unspecified, without perforation or abscess without bleeding; K59.09 Other constipation; E11.9 Type 2 diabetes mellitus without complications; E78.5 Hyperlipidemia, unspecified; F32.9 Major depressive disorder, single episode, unspecified; F41.0 Panic disorder [episodic paroxysmal anxiety]; B96.20 Unspecified Escherichia coli [E. coli] as the cause of diseases classified elsewhere; G89.4 Chronic pain syndrome; E87.6 Hypokalemia; I10 Essential (primary) hypertension; I25.10 Atherosclerotic heart disease of native coronary artery without angina pectoris; Z16.29 Resistance to other single specified antibiotic; D50.9 Iron deficiency anemia, unspecified; K21.9 Gastro-esophageal reflux disease without esophagitis; K64.8 Other hemorrhoids; H26.9 Unspecified cataract; M54.9 Dorsalgia, unspecified; Z98.61 Coronary angioplasty status; I25.2 Old myocardial infarction; Z88.0 Allergy status to penicillin; Z88.8 Allergy status to other drugs, medicaments and biological substances; Z88.2 Allergy status to sulfonamides; Z79.899 Other long term (current) drug therapy
CPT/HCPCS: 36415; 45330; 76856; 80053; 80061; 81001; 82378; 82728; 82948; 83540; 83550; 83605; 83735; 84100; 84484; 85025; 85610; 86304; 87040; 87070; 87077; 87088; 87186; 96360; 97116; 97161; 99152; 99285; A4620; C9113; G0378; J0696; J1644; J1815; J1956; J2250; J2270; J2405; J3010; J3475; J3490; J7030

== ENCOUNTER 2018-07-26 12:04 | Inpatient (IN) | payer MEDICARE, MEDICAID ==
[~2018-07-26] VITALS: Ht 160 cm; Wt 59.0 kg
[~2018-07-26 12:04] MED LIST changes: +ASCO500C15 PO; +CARV3.12 PO; -CARV3.122 PO; +CEFD300C3 PO; -CIP750T PO; -CIPR-230 PO; +DOCU-28 PO; +FERR325T28 PO; -LORA10TA7 PO; +MAGN400O6 PO; +METR500T PO; -METR500T4 PO
[2018-07-26] MEDS ORDERED: magnesium 2GM in 50ml NS 50 ML IV ONE (13:15)
[2018-07-26] MEDS ORDERED: normal saline 1000ml 1,000 ML IV ONE (13:15)
[2018-07-26 13:41] LABS: BASOPHILS % (AUTO) 0.1 % (0-1); EOSINOPHILS # (AUTO) 0.1 X10'3 (0-0.9); EOSINOPHILS % (AUTO) 2.4 % (0-6); HEMATOCRIT 29.3 % (35.0-45.0); HEMOGLOBIN 9.4 g/dl (12.0-16.0); LYMPHOCYTES # (AUTO) 1.1 X10'3 (1.1-4.8); LYMPHOCYTES % (AUTO) 19.4 % (21-51); MEAN CORPUSCULAR HEMOGLOBIN 25.8 PG (27.0-31.0); MEAN CORPUSCULAR HGB CONC 32.2 % (33.0-36.5); MEAN PLATELET VOLUME 6.7 FL (7.4-10.4); MONOCYTES # (AUTO) 0.5 X10'3 (0-0.9); MONOCYTES % (AUTO) 8.7 % (2-12); NEUTROPHILS % (AUTO) 69.4 % (42-75); PLATELET COUNT 385 X10'3 (140-440); RED BLOOD COUNT 3.66 X10'6 (4.20-5.60); RED CELL DISTRIBUTION WIDTH 17.6 % (11.5-14.5); WHITE BLOOD COUNT 5.7 X10'3 (4.5-11.0)
[2018-07-26 13:53] LABS: PROTHROMBIN TIME 10.4 SECONDS (9.0-12.0)
[2018-07-26 13:54] LABS: PARTIAL THROMBOPLASTIN TIME 26 SECONDS (22-32)
[2018-07-26 13:56] LABS: ALANINE AMINOTRANSFERASE 25 U/L (12-78); ALBUMIN/GLOBULIN RATIO 0.9 (1.1-1.5); ALKALINE PHOSPHATASE 66 IU/L (46-116); ANION GAP 7 (8-16); ASPARTATE AMINO TRANSFERASE 51 U/L (10-37); BILIRUBIN,TOTAL 0.1 MG/DL (0.1-1.0); BLOOD UREA NITROGEN 12 MG/DL (7-18); BUN/CREATININE RATIO 13.6 (6.6-38.0); CALCIUM 8.3 MG/DL (8.5-10.1); CHLORIDE 108 MMOL/L (99-107); CREATININE 0.88 MG/DL (0.40-0.90); GLUCOSE 237 MG/DL (70-104); POTASSIUM 3.6 MMOL/L (3.5-5.1); SODIUM 144 MMOL/L (135-145); TOTAL CARBON DIOXIDE 29.4 MMOL/L (24-32); TOTAL PROTEIN 6.3 G/DL (6.4-8.2); eGFR 63 ML/MIN
[2018-07-26] MEDS ORDERED: heparin 10,000 units/1 ML INJ IV ONE (14:20)
[2018-07-26] MEDS ORDERED: aspirin 325mg tablet PO ONE (14:40)
[2018-07-26] MEDS: heparin 25,000 UNIT/250ml bag 250 ML IV SCH ×2 (15:16→23:02)
[2018-07-26] MEDS ORDERED: magnesium hydroxide 30ml (MOM) UD suspension PO PRN ×2 (22:05)
[2018-07-26] MEDS ORDERED: ondansetron/PF 4mg/2ml inj IV PRN (22:05)
[2018-07-26] MEDS ORDERED: dextrose ORAL solution 15 GM/59 ML bottle PO PRN ×2 (22:05)
[2018-07-26] MEDS ORDERED: mag hydrox/Alum hydrox/simeth 30ml oral suspension PO PRN (22:05)
[2018-07-26] MEDS ORDERED: acetaminophen 325mg tablet PO PRN ×2 (22:05)
[2018-07-26] MEDS ORDERED: insulin Lispro (HumaLOG) vial - multi-dose SQ SCH (22:05)
[2018-07-26] MEDS ORDERED: glucagon, human recombinant 1mg kit SUBCUT PRN (22:05)
[2018-07-26] MEDS ORDERED: MESSAGE TO PHARMACY PO ONE (22:05)
[2018-07-26] MEDS ORDERED: dextrose 50%-water 50ml dispensing syringe IV PRN ×2 (22:05)
[2018-07-26] MEDS: heparin 10,000 units/1 ML INJ IV PRN (23:01)
[2018-07-26 23:30] VITALS: BP 141/72
[2018-07-27 01:08] LABS: BASOPHILS % (AUTO) 0.4 % (0-1); EOSINOPHILS # (AUTO) 0.4 X10'3 (0-0.9); EOSINOPHILS % (AUTO) 6.2 % (0-6); HEMATOCRIT 27.5 % (35.0-45.0); HEMOGLOBIN 9.1 g/dl (12.0-16.0); LYMPHOCYTES # (AUTO) 2.7 X10'3 (1.1-4.8); LYMPHOCYTES % (AUTO) 45.6 % (21-51); MEAN CORPUSCULAR HEMOGLOBIN 26.5 PG (27.0-31.0); MEAN CORPUSCULAR HGB CONC 33.1 % (33.0-36.5); MEAN CORPUSCULAR VOLUME 79.9 FL (78-98); MEAN PLATELET VOLUME 7.1 FL (7.4-10.4); MONOCYTES # (AUTO) 0.5 X10'3 (0-0.9); MONOCYTES % (AUTO) 9.3 % (2-12); NEUTROPHILS # (AUTO) 2.3 X10'3 (1.8-7.7); NEUTROPHILS % (AUTO) 38.5 % (42-75); PLATELET COUNT 303 X10'3 (140-440); RED BLOOD COUNT 3.44 X10'6 (4.20-5.60); RED CELL DISTRIBUTION WIDTH 16.8 % (11.5-14.5); WHITE BLOOD COUNT 5.9 X10'3 (4.5-11.0)
[2018-07-27 01:18] LABS: ALBUMIN 2.7 G/DL (3.4-5.0); ANION GAP 7 (8-16); BLOOD UREA NITROGEN 9 MG/DL (7-18); BUN/CREATININE RATIO 12.2 (6.6-38.0); CALCIUM 8.5 MG/DL (8.5-10.1); CHLORIDE 109 MMOL/L (99-107); CREATININE 0.74 MG/DL (0.40-0.90); GLUCOSE 129 MG/DL (70-104); SODIUM 146 MMOL/L (135-145); TOTAL CARBON DIOXIDE 30.4 MMOL/L (24-32); eGFR 77 ML/MIN
[2018-07-27 01:23] LABS: TROPONIN I 0.88 NG/ML (0.0-0.05)
[2018-07-27] MEDS ORDERED: potassium Cl 40MEQ/NS 500ml 500 ML IV PRN ×2 (01:30)
[2018-07-27] MEDS ORDERED: potassium Cl 20 mEq SR tablet PO PRN (01:30)
[2018-07-27] MEDS: potassium Cl 20 mEq SR tablet PO PRN ×3 (02:20→14:19)
[2018-07-27 03:00] VITALS: BP 148/83
[2018-07-27 06:00] VITALS: BP 149/82
[2018-07-27 06:11] LABS: MAGNESIUM 1.3 MG/DL (1.5-2.4); POTASSIUM 3.6 MMOL/L (3.5-5.1)
[2018-07-27] MEDS: heparin 25,000 UNIT/250ml bag 250 ML IV SCH ×2 (07:08→14:34)
[2018-07-27] MEDS ORDERED: AMLODIPINE PO SCH (08:00)
[2018-07-27] MEDS ORDERED: carVEDilol 3.125mg tablet PO SCH (08:00)
[2018-07-27] MEDS ORDERED: VALSARTAN PO SCH (08:00)
[2018-07-27] MEDS: metroNIDAZOLE 500mg tablet PO SCH ×2 (08:29→20:44)
[2018-07-27] MEDS: ferrous sulfate 325mg tablet PO SCH ×2 (08:30→20:44)
[2018-07-27] MEDS: docusate sod 100mg capsule PO SCH ×2 (08:30→20:43)
[2018-07-27] MEDS: aspirin 81mg tab.chew PO SCH (08:30)
[2018-07-27] MEDS: FLUoxetine 20mg capsule PO SCH (08:31)
[2018-07-27] MEDS: amLODIPine 5mg tablet PO SCH (08:31)
[2018-07-27] MEDS: gabapentin 400mg capsule PO SCH ×3 (08:31→20:43)
[2018-07-27] MEDS: atorvastatin 20mg tablet PO SCH (08:32)
[2018-07-27] MEDS: losartan 50mg tablet PO SCH (08:33)
[2018-07-27] MEDS: ciprofloxacin 250mg tablet PO SCH ×2 (08:39→20:44)
[2018-07-27] MEDS: magnesium Cl slow-release 64mg tablet PO PRN ×2 (08:40→22:42)
[2018-07-27] MEDS ORDERED: carVEDilol 3.125mg tablet PO ONE (10:00)
[2018-07-27] MEDS ORDERED: metoprolol tartrate 1mg/ml inj IV PRN (10:30)
[2018-07-27] MEDS ORDERED: regadenoson 0.4mg/5ml syringe IV ONE (10:30)
[2018-07-27] MEDS ORDERED: nitroGLYCERIN 0.4mg SUBLingual tab SL PRN (10:30)
[2018-07-27] MEDS ORDERED: aminophylline 250mg/10ml inj. IV PRN (10:30)
[2018-07-27 10:50] LABS: CHOL/HDL RATIO 2.9 (0.00-4.99); CHOLESTEROL 93 MG/DL (0-200); HDL CHOLESTEROL 32 MG/DL (35-60); LDL CHOLESTEROL 44 MG/DL (50-100); TRIGLYCERIDES 95 MG/DL (20-135)
[2018-07-27 11:00] VITALS: BP 118/87
[2018-07-27] MEDS: heparin 10,000 units/1 ML INJ IV PRN (14:32)
[2018-07-27 18:00] VITALS: BP 115/71
[2018-07-27] MEDS: lactobacillus rhamnosus 10,000 MMU CELLS/CAPSULE PO SCH (20:44)
[2018-07-27] MEDS: carVEDilol 3.125mg tablet PO SCH (20:45)
[2018-07-27] MEDS: insulin glargine (Lantus) pen - multi-dose SQ SCH (21:00)
[2018-07-27] MEDS: cyclobenzaprine 10mg tablet PO PRN (21:24)
[2018-07-27 22:00] VITALS: BP 124/76
[2018-07-28] VITALS (19 sets, daily range): BP systolic 82–162; BP diastolic 59–92
[2018-07-28 03:01] LABS: BASOPHILS % (AUTO) 0.5 % (0-1); EOSINOPHILS # (AUTO) 0.4 X10'3 (0-0.9); EOSINOPHILS % (AUTO) 7.5 % (0-6); HEMATOCRIT 33.2 % (35.0-45.0); HEMOGLOBIN 10.7 g/dl (12.0-16.0); LYMPHOCYTES # (AUTO) 2.6 X10'3 (1.1-4.8); LYMPHOCYTES % (AUTO) 45.9 % (21-51); MEAN CORPUSCULAR HEMOGLOBIN 25.8 PG (27.0-31.0); MEAN CORPUSCULAR HGB CONC 32.3 % (33.0-36.5); MEAN PLATELET VOLUME 7.1 FL (7.4-10.4); MONOCYTES # (AUTO) 0.5 X10'3 (0-0.9); MONOCYTES % (AUTO) 9.6 % (2-12); NEUTROPHILS # (AUTO) 2.1 X10'3 (1.8-7.7); NEUTROPHILS % (AUTO) 36.5 % (42-75); PLATELET COUNT 372 X10'3 (140-440); RED BLOOD COUNT 4.15 X10'6 (4.20-5.60); RED CELL DISTRIBUTION WIDTH 18.2 % (11.5-14.5); WHITE BLOOD COUNT 5.7 X10'3 (4.5-11.0)
[2018-07-28 03:12] LABS: ALBUMIN 2.9 G/DL (3.4-5.0); ANION GAP 6 (8-16); BLOOD UREA NITROGEN 15 MG/DL (7-18); CALCIUM 9.4 MG/DL (8.5-10.1); CHLORIDE 109 MMOL/L (99-107); CREATININE 0.75 MG/DL (0.40-0.90); GLUCOSE 133 MG/DL (70-104); MAGNESIUM 1.4 MG/DL (1.5-2.4); POTASSIUM 4.4 MMOL/L (3.5-5.1); SODIUM 144 MMOL/L (135-145); TOTAL CARBON DIOXIDE 29.2 MMOL/L (24-32); eGFR 76 ML/MIN
[2018-07-28] MEDS: heparin 25,000 UNIT/250ml bag 250 ML IV SCH (04:03)
[2018-07-28] MEDS: lactobacillus rhamnosus 10,000 MMU CELLS/CAPSULE PO SCH ×2 (08:00→19:23)
[2018-07-28] MEDS: amLODIPine 5mg tablet PO SCH (08:00)
[2018-07-28] MEDS: ciprofloxacin 250mg tablet PO SCH ×2 (08:00→19:22)
[2018-07-28] MEDS: metroNIDAZOLE 500mg tablet PO SCH ×2 (08:00→19:23)
[2018-07-28] MEDS: gabapentin 400mg capsule PO SCH ×3 (08:00→21:15)
[2018-07-28] MEDS: atorvastatin 20mg tablet PO SCH (08:00)
[2018-07-28] MEDS: docusate sod 100mg capsule PO SCH ×2 (08:00→19:23)
[2018-07-28] MEDS: losartan 50mg tablet PO SCH (08:00)
[2018-07-28] MEDS: carVEDilol 3.125mg tablet PO SCH (08:00)
[2018-07-28] MEDS: FLUoxetine 20mg capsule PO SCH (08:01)
[2018-07-28] MEDS: ferrous sulfate 325mg tablet PO SCH ×2 (08:01→19:23)
[2018-07-28] MEDS: aspirin 81mg tab.chew PO SCH (08:30)
[2018-07-28] MEDS ORDERED: aminophylline inj. 10 ML IV ONE (11:20)
[2018-07-28] MEDS ORDERED: regadenoson 0.4mg/5ml syringe IV ONE (11:20)
[2018-07-28] MEDS ORDERED: diltiazem 5mg/ml 5ml inj. IV STA (13:34)
[2018-07-28] MEDS ORDERED: carvedilol 6.25mg tablet PO STA (13:34)
[2018-07-28] MEDS ORDERED: carvedilol 6.25mg tablet PO ONE (13:55)
[2018-07-28] MEDS: magnesium Cl slow-release 64mg tablet PO PRN (13:58)
[2018-07-28] MEDS: carvedilol 6.25mg tablet PO SCH (19:23)
[2018-07-28] MEDS: cyclobenzaprine 10mg tablet PO PRN (19:30)
[2018-07-28] MEDS ORDERED: carVEDilol 3.125mg tablet PO SCH (20:00)
[2018-07-28] MEDS ORDERED: rivaroxaban 20mg tablet PO SCH (20:00)
[2018-07-28] MEDS: insulin glargine (Lantus) pen - multi-dose SQ SCH (21:00)
[2018-07-29 02:00] VITALS: BP 105/62
[2018-07-29 06:00] VITALS: BP 115/76
[2018-07-29 06:07] LABS: BASOPHILS % (AUTO) 0.5 % (0-1); EOSINOPHILS # (AUTO) 0.5 X10'3 (0-0.9); EOSINOPHILS % (AUTO) 9.1 % (0-6); HEMATOCRIT 33.8 % (35.0-45.0); HEMOGLOBIN 10.9 g/dl (12.0-16.0); LYMPHOCYTES # (AUTO) 2.3 X10'3 (1.1-4.8); LYMPHOCYTES % (AUTO) 39.8 % (21-51); MEAN CORPUSCULAR HEMOGLOBIN 25.8 PG (27.0-31.0); MEAN CORPUSCULAR HGB CONC 32.3 % (33.0-36.5); MEAN CORPUSCULAR VOLUME 79.8 FL (78-98); MEAN PLATELET VOLUME 7.1 FL (7.4-10.4); MONOCYTES # (AUTO) 0.7 X10'3 (0-0.9); MONOCYTES % (AUTO) 11.3 % (2-12); NEUTROPHILS # (AUTO) 2.3 X10'3 (1.8-7.7); NEUTROPHILS % (AUTO) 39.3 % (42-75); PLATELET COUNT 384 X10'3 (140-440); RED BLOOD COUNT 4.23 X10'6 (4.20-5.60); WHITE BLOOD COUNT 5.8 X10'3 (4.5-11.0)
[2018-07-29 06:19] LABS: ANION GAP 9 (8-16); BLOOD UREA NITROGEN 20 MG/DL (7-18); BUN/CREATININE RATIO 20.6 (6.6-38.0); CHLORIDE 109 MMOL/L (99-107); CREATININE 0.97 MG/DL (0.40-0.90); GLUCOSE 127 MG/DL (70-104); MAGNESIUM 1.4 MG/DL (1.5-2.4); POTASSIUM 4.2 MMOL/L (3.5-5.1); SODIUM 145 MMOL/L (135-145); TOTAL CARBON DIOXIDE 27.3 MMOL/L (24-32); eGFR 56 ML/MIN
[2018-07-29] MEDS: FLUoxetine 20mg capsule PO SCH (08:59)
[2018-07-29] MEDS: gabapentin 400mg capsule PO SCH (08:59)
[2018-07-29] MEDS: carvedilol 6.25mg tablet PO SCH (08:59)
[2018-07-29] MEDS: aspirin 81mg tab.chew PO SCH (08:59)
[2018-07-29] MEDS: metroNIDAZOLE 500mg tablet PO SCH (08:59)
[2018-07-29] MEDS: atorvastatin 20mg tablet PO SCH (09:00)
[2018-07-29] MEDS: ferrous sulfate 325mg tablet PO SCH (09:00)
[2018-07-29] MEDS: lactobacillus rhamnosus 10,000 MMU CELLS/CAPSULE PO SCH (09:00)
[2018-07-29] MEDS: ciprofloxacin 250mg tablet PO SCH (09:00)
[2018-07-29] MEDS: docusate sod 100mg capsule PO SCH (09:00)
[2018-07-29] MEDS ORDERED: RIVA20TA PO (12:06)
[2018-07-29 12:43] VITALS: BP 118/84
== END 2018-07-29 14:00 | disposition home health service (06) | DRG 309 ==
LOC: ER 12:05 → ED HOLD 22:01 → PCU 3S 22:40
PROVIDERS: ADMIT Internal Medicine; ATTEND Internal Medicine
PROC: 4A02XM4 Measurement of Cardiac Total Activity, External Approach (ICD-10-PCS; principal; 2018-07-28)
PROC: 3E033HZ Introduction of Radioactive Substance into Peripheral Vein, Percutaneous Approach (ICD-10-PCS; 2018-07-28)
DX: I48.0 Paroxysmal atrial fibrillation (principal); K57.92 Diverticulitis of intestine, part unspecified, without perforation or abscess without bleeding; K21.9 Gastro-esophageal reflux disease without esophagitis; E11.9 Type 2 diabetes mellitus without complications; E78.00 Pure hypercholesterolemia, unspecified; E78.5 Hyperlipidemia, unspecified; F41.0 Panic disorder [episodic paroxysmal anxiety]; G25.81 Restless legs syndrome; G47.33 Obstructive sleep apnea (adult) (pediatric); G89.4 Chronic pain syndrome; I10 Essential (primary) hypertension; I25.10 Atherosclerotic heart disease of native coronary artery without angina pectoris; F32.9 Major depressive disorder, single episode, unspecified; D64.9 Anemia, unspecified; M19.90 Unspecified osteoarthritis, unspecified site; H26.9 Unspecified cataract; M54.9 Dorsalgia, unspecified; R74.8 Abnormal levels of other serum enzymes; Z95.5 Presence of coronary angioplasty implant and graft; Z88.0 Allergy status to penicillin; Z88.2 Allergy status to sulfonamides; Z88.8 Allergy status to other drugs, medicaments and biological substances; Z79.899 Other long term (current) drug therapy; I25.2 Old myocardial infarction; Z79.84 Long term (current) use of oral hypoglycemic drugs; Z79.82 Long term (current) use of aspirin
CPT/HCPCS: 36415; 71045; 78452; 80048; 80053; 80061; 82948; 83735; 84132; 84484; 85025; 85610; 85730; 87070; 93005; 93017; 96365; 96375; 97116; 97162; 97530; 99285; A9500; G0378; J0280; J1644; J1815; J3475; J3490

== ENCOUNTER 2018-08-21 19:03 | Emergency (ER) | payer MEDICARE, MEDICAID ==
[~2018-08-21] VITALS: Ht 167.6 cm; Wt 67.0 kg
[~2018-08-21 19:03] MED LIST changes: -AMLO1TAB12 PO; -CEFD300C3 PO; -GLIP10TA11 PO; -METR500T PO; +RIVA20TA PO
[2018-08-21] MEDS ORDERED: normal saline 1000ML IV soln IVB ONE (19:55)
[2018-08-21 20:12] LABS: ALANINE AMINOTRANSFERASE 12 U/L (12-78); ALBUMIN 3.3 G/DL (3.4-5.0); ALKALINE PHOSPHATASE 67 IU/L (46-116); ANION GAP 10 (8-16); ASPARTATE AMINO TRANSFERASE 11 U/L (10-37); BILIRUBIN,TOTAL 0.1 MG/DL (0.1-1.0); BLOOD UREA NITROGEN 25 MG/DL (7-18); BUN/CREATININE RATIO 26.9 (6.6-38.0); CALCIUM 8.7 MG/DL (8.5-10.1); CHLORIDE 106 MMOL/L (99-107); CREATININE 0.93 MG/DL (0.40-0.90); GLUCOSE 223 MG/DL (70-104); POTASSIUM 4.2 MMOL/L (3.5-5.1); SODIUM 143 MMOL/L (135-145); TOTAL CARBON DIOXIDE 27.2 MMOL/L (24-32); TOTAL PROTEIN 6.7 G/DL (6.4-8.2); eGFR 59 ML/MIN
[2018-08-21 20:20] LABS: MAGNESIUM 1.4 MG/DL (1.5-2.4)
[2018-08-21 20:24] LABS: BASOPHILS % (AUTO) 0.4 % (0-1); D-DIMER 0.25 MG/L FEU (0-0.50); EOSINOPHILS # (AUTO) 0.6 X10'3 (0-0.9); EOSINOPHILS % (AUTO) 10.2 % (0-6); HEMATOCRIT 31.1 % (35.0-45.0); LYMPHOCYTES # (AUTO) 2.4 X10'3 (1.1-4.8); LYMPHOCYTES % (AUTO) 42.1 % (21-51); MEAN CORPUSCULAR HEMOGLOBIN 25.5 PG (27.0-31.0); MEAN CORPUSCULAR HGB CONC 32.3 % (33.0-36.5); MEAN CORPUSCULAR VOLUME 78.8 FL (78-98); MEAN PLATELET VOLUME 7.7 FL (7.4-10.4); MONOCYTES # (AUTO) 0.6 X10'3 (0-0.9); MONOCYTES % (AUTO) 10.2 % (2-12); NEUTROPHILS # (AUTO) 2.1 X10'3 (1.8-7.7); NEUTROPHILS % (AUTO) 37.1 % (42-75); PLATELET COUNT 224 X10'3 (140-440); RED BLOOD COUNT 3.94 X10'6 (4.20-5.60); RED CELL DISTRIBUTION WIDTH 18.5 % (11.5-14.5); WHITE BLOOD COUNT 5.6 X10'3 (4.5-11.0)
[2018-08-21 20:37] VITALS: BP 102/56
[2018-08-21] MEDS ORDERED: mag hydrox/Alum hydrox/simeth 30ml oral suspension PO ONE (21:00)
[2018-08-21] MEDS ORDERED: LIDOcaine Viscous 15ml cup PO ONE (21:00)
== END 2018-08-21 21:47 | disposition home or self-care (01) ==
LOC: ER 19:03
DX: R07.89 Other chest pain (principal); R06.02 Shortness of breath; I48.91 Unspecified atrial fibrillation; E78.00 Pure hypercholesterolemia, unspecified; I10 Essential (primary) hypertension; I25.2 Old myocardial infarction; K21.9 Gastro-esophageal reflux disease without esophagitis; E11.9 Type 2 diabetes mellitus without complications; G89.29 Other chronic pain; Z98.61 Coronary angioplasty status; Z98.890 Other specified postprocedural states; Z88.0 Allergy status to penicillin; Z88.2 Allergy status to sulfonamides; Z88.8 Allergy status to other drugs, medicaments and biological substances; Z79.82 Long term (current) use of aspirin; Z79.899 Other long term (current) drug therapy
CPT/HCPCS: 36415; 71045; 80053; 83735; 83880; 84484; 85025; 85379; 93005; 99284; J7030

== ENCOUNTER 2018-09-08 17:16 | Emergency (ER) | payer MEDICARE, MEDICAID ==
[~2018-09-08] VITALS: Ht 167.6 cm; Wt 59.1 kg
[~2018-09-08 17:16] MED LIST changes: -FERR325T28 PO
[2018-09-08] MEDS ORDERED: adenosine 3mg/ml 2ml vial IV ONE (17:35)
--- NOTE | 2018-09-08 17:40 | NUR ---
Covering Primary RN for break. Preparing to give pt adenosine for HR.
--- NOTE | 2018-09-08 17:43 | NUR ---
IV initiated and crash cart at bedside. Medication at bedside and MD notified.
--- NOTE | 2018-09-08 17:46 | NUR ---
Adenosine given with Dr Bill at bedside. HR initially 180 and reduced to 121. Dr Bill requests repeat EKG.
[2018-09-08 18:11] LABS: BASOPHILS % (AUTO) 0.5 % (0-1); EOSINOPHILS # (AUTO) 0.4 X10'3 (0-0.9); EOSINOPHILS % (AUTO) 4.9 % (0-6); HEMATOCRIT 34.3 % (35.0-45.0); LYMPHOCYTES # (AUTO) 2.7 X10'3 (1.1-4.8); LYMPHOCYTES % (AUTO) 34.6 % (21-51); MEAN CORPUSCULAR HEMOGLOBIN 25.3 PG (27.0-31.0); MEAN CORPUSCULAR HGB CONC 32.1 % (33.0-36.5); MEAN CORPUSCULAR VOLUME 78.9 FL (78-98); MEAN PLATELET VOLUME 7.4 FL (7.4-10.4); MONOCYTES # (AUTO) 0.8 X10'3 (0-0.9); MONOCYTES % (AUTO) 10.7 % (2-12); NEUTROPHILS # (AUTO) 3.9 X10'3 (1.8-7.7); NEUTROPHILS % (AUTO) 49.3 % (42-75); PLATELET COUNT 380 X10'3 (140-440); RED BLOOD COUNT 4.34 X10'6 (4.20-5.60); RED CELL DISTRIBUTION WIDTH 17.5 % (11.5-14.5); WHITE BLOOD COUNT 7.8 X10'3 (4.5-11.0)
[2018-09-08 18:25] LABS: ALANINE AMINOTRANSFERASE 16 U/L (12-78); ALBUMIN 3.6 G/DL (3.4-5.0); ALKALINE PHOSPHATASE 59 IU/L (46-116); ANION GAP 12 (8-16); ASPARTATE AMINO TRANSFERASE 17 U/L (10-37); BILIRUBIN,TOTAL 0.2 MG/DL (0.1-1.0); BLOOD UREA NITROGEN 22 MG/DL (7-18); BUN/CREATININE RATIO 20.6 (6.6-38.0); CALCIUM 8.6 MG/DL (8.5-10.1); CHLORIDE 105 MMOL/L (99-107); CREATININE 1.07 MG/DL (0.40-0.90); GLUCOSE 202 MG/DL (70-104); PARTIAL THROMBOPLASTIN TIME 25 SECONDS (22-32); POTASSIUM 3.3 MMOL/L (3.5-5.1); PROTHROMBIN TIME 10.4 SECONDS (9.0-12.0); SODIUM 141 MMOL/L (135-145); TOTAL CARBON DIOXIDE 24.3 MMOL/L (24-32); TOTAL PROTEIN 7.2 G/DL (6.4-8.2); eGFR 50 ML/MIN
[2018-09-08] MEDS ORDERED: diltiazem-D5W 125mg/125ml 125 ML IV ONE (18:31)
[2018-09-08 18:32] LABS: MAGNESIUM 1.6 MG/DL (1.5-2.4)
[2018-09-08] MEDS ORDERED: diltiazem 5mg/ml 5ml inj. IV ONE (18:35)
[2018-09-08 22:10] VITALS: BP 128/76
== END 2018-09-08 22:35 | disposition home or self-care (01) ==
LOC: ER 17:17
DX: I47.1 Supraventricular tachycardia (principal); I48.91 Unspecified atrial fibrillation; E78.00 Pure hypercholesterolemia, unspecified; I10 Essential (primary) hypertension; I25.2 Old myocardial infarction; K21.9 Gastro-esophageal reflux disease without esophagitis; E11.9 Type 2 diabetes mellitus without complications; G89.29 Other chronic pain; Z95.5 Presence of coronary angioplasty implant and graft; Z90.89 Acquired absence of other organs; Z88.0 Allergy status to penicillin; Z88.2 Allergy status to sulfonamides; Z88.8 Allergy status to other drugs, medicaments and biological substances; Z79.82 Long term (current) use of aspirin; Z79.899 Other long term (current) drug therapy
CPT/HCPCS: 36415; 71045; 80053; 83735; 83880; 84484; 85025; 85610; 85730; 93005; 96365; 96375; 96376; 99284; J0153; J3490

== ENCOUNTER 2019-09-07 16:24 | Emergency (ER) | payer MEDICARE, MEDICAID ==
[~2019-09-07] VITALS: Ht 167.6 cm; Wt 59.1 kg
[~2019-09-07 16:24] MED LIST changes: +FLUO-167 PO; -FLUO20CA22 PO; -OMEP20CA10 PO; +OMEP20CA15 PO
[2019-09-07 17:35] LABS: BASOPHILS % (AUTO) 0.5 % (0-1); EOSINOPHILS # (AUTO) 0.3 X10'3 (0-0.9); EOSINOPHILS % (AUTO) 3.8 % (0-6); HEMATOCRIT 43.4 % (35.0-45.0); HEMOGLOBIN 14.3 g/dl (12.0-16.0); LYMPHOCYTES # (AUTO) 1.8 X10'3 (1.1-4.8); LYMPHOCYTES % (AUTO) 26.4 % (21-51); MEAN CORPUSCULAR HEMOGLOBIN 27.1 PG (27.0-31.0); MEAN PLATELET VOLUME 8.5 FL (7.4-10.4); MONOCYTES # (AUTO) 0.5 X10'3 (0-0.9); MONOCYTES % (AUTO) 7.1 % (2-12); NEUTROPHILS # (AUTO) 4.3 X10'3 (1.8-7.7); NEUTROPHILS % (AUTO) 62.2 % (42-75); PLATELET COUNT 354 X10'3 (140-440); RED BLOOD COUNT 5.29 X10'6 (4.20-5.60); RED CELL DISTRIBUTION WIDTH 16.7 % (11.5-14.5); WHITE BLOOD COUNT 6.9 X10'3 (4.5-11.0)
[2019-09-07 17:41] LABS: PARTIAL THROMBOPLASTIN TIME 25 SECONDS (22-32)
[2019-09-07 17:51] LABS: ALANINE AMINOTRANSFERASE 19 U/L (12-78); ALBUMIN 4.2 G/DL (3.4-5.0); ALKALINE PHOSPHATASE 93 IU/L (46-116); AMYLASE 45 U/L (25-115); ANION GAP 7 (8-16); ASPARTATE AMINO TRANSFERASE 15 U/L (10-37); BILIRUBIN,TOTAL 0.3 MG/DL (0.1-1.0); BLOOD UREA NITROGEN 28 MG/DL (7-18); BUN/CREATININE RATIO 23.5 (6.6-38.0); CALCIUM 9.9 MG/DL (8.5-10.1); CHLORIDE 100 MMOL/L (99-107); CREATININE 1.19 MG/DL (0.40-0.90); LIPASE 197 U/L (73-393); POTASSIUM 4.4 MMOL/L (3.5-5.1); SODIUM 137 MMOL/L (135-145); TOTAL PROTEIN 8.3 G/DL (6.4-8.2); eGFR 44 ML/MIN
[2019-09-07 17:58] LABS: GLUCOSE 490 MG/DL (70-104)
[2019-09-07] MEDS ORDERED: meclizine 12.5mg tablet PO ONE (18:35)
[2019-09-07] MEDS ORDERED: normal saline 1000ml 1,000 ML IV ONE (18:35)
[2019-09-07] MEDS ORDERED: calcium carbonate 500mg chew tablet PO SCH (18:35)
[2019-09-07 19:04] LABS: CLARITY,URINE CLOUDY (Clear); COLOR,URINE YELLOW (Yellow); GLUCOSE, URINE >=1000 mg/dl (Neg); KETONES,URINE NEGATIVE (Neg); LEUKOCYTE ESTERASE ,URINE TRACE (Neg); NITRITES, URINE POSITIVE (Neg); OCCULT BLOOD,URINE NEGATIVE (Neg); PH,URINE 5.5 (4.8-8.0); PROTEIN,URINE NEGATIVE (Neg); UROBILINOGEN,URINE 0.2 E.U/dL (0.2-1.0)
[2019-09-07 19:09] LABS: UA COLLECTION TYPE CLN CATCH MIDSTREAM
[2019-09-07 19:10] LABS: BACTERIA,URINE 4+ /HPF (Neg); HYALINE CASTS 0-3 /LPF (NEGATIVE); RBC,URINE NONE SEEN /HPF (0-2); SQUAMOUS EPITHELIAL CELL,UR FEW /LPF (FEW); WBC,URINE 30-50 /HPF (0-4)
[2019-09-07] MEDS ORDERED: insulin Lispro (HumaLOG) vial - multi-dose SQ SCH (19:10)
[2019-09-07] MEDS ORDERED: CefTRIAXone inj 1,000 MG in normal saline 50ml IV soln 50 ML IV ONE (19:25)
[2019-09-07] MEDS ORDERED: CEPH500C5 PO (19:31)
[2019-09-07] MEDS ORDERED: DEXTROSE 5% IV ONE (19:34)
[2019-09-07] MEDS ORDERED: WATER IV ONE (19:34)
[2019-09-07] MEDS ORDERED: CEFTRIAXONE IV ONE (19:34)
[2019-09-07] MEDS ORDERED: CefTRIAXone/D5W-Rocephin 1gm 50 ML IV ONE (19:35)
[2019-09-07] MEDS: insulin regular, human 10 units/0.1 ml syringe IV ONE ×2 (19:41→19:48)
[2019-09-07] MEDS ORDERED: UNABLE TO OBTAIN (19:52)
--- NOTE | 2019-09-07 19:52 | NUR ---
PT REPORTS SHE DOES NOT KNOW ANY OF HER MEDICATIONS AND TAHT HER BOYFRIEND SOFI WILL KNOW THEM. SHE STATES HE WILL BE CALLING HER. I ASKED IF SHE CAN REMEMBER TO HAVE HIM TALK TO ONE OF THE RNS WHEN HE CALLS TO GIVE US THE MED LIST. ACCUCHECK 399, GIVEN 10 10 IV INSULIN. ROCEFIN IVPB STARTED. PT WITH STABLE VS. STATES HE PAIN IS 8 OUT OF 10 TO HER LOW BACK (CHRONIC) STATES SHE TAKES FLEXERIL FOR THIS PAIN.
--- NOTE | 2019-09-07 20:17 | NUR ---
PT PREPARED FOR DISCHARGE, [employer] WORKER ABY IN TO SEE PT FOR DC INSTRTUCITONS. PT HAS BOYFRIEND, SOFI, AND UNABLE TO GET THROUGH TO HIS NUMBER. CURRENTLY TRANSPORT WAIT.
--- NOTE | 2019-09-07 20:22 | NUR ---
2ND NUMBER TRIED FOR SOFI, PTS BOYFRIEND, [phone]. MESSAGE LEFT FOR HIM.
--- NOTE | 2019-09-07 20:25 | NUR ---
PT REPORTS SHE HAS NO MONEY TO PAY FOR A TAXI RIDE HOME.
[2019-09-07 21:03] VITALS: BP 157/71
== END 2019-09-07 21:08 | disposition home or self-care (01) ==
LOC: ER 16:24
DX: N39.0 Urinary tract infection, site not specified (principal); R42 Dizziness and giddiness; I48.91 Unspecified atrial fibrillation; E78.00 Pure hypercholesterolemia, unspecified; I10 Essential (primary) hypertension; I25.2 Old myocardial infarction; K21.9 Gastro-esophageal reflux disease without esophagitis; E11.9 Type 2 diabetes mellitus without complications; G89.29 Other chronic pain; Z95.5 Presence of coronary angioplasty implant and graft; Z90.89 Acquired absence of other organs; Z88.0 Allergy status to penicillin; Z88.2 Allergy status to sulfonamides; Z79.82 Long term (current) use of aspirin; Z79.899 Other long term (current) drug therapy
CPT/HCPCS: 36415; 70450; 71045; 80053; 81001; 82150; 82948; 83690; 84484; 85025; 85610; 85730; 87077; 87088; 87186; 93005; 96361; 96365; 96375; 99284; J0696; J1815; J7030; J8597; J7070

== ENCOUNTER 2019-11-14 14:50 | Emergency (ER) | payer MEDICARE, MEDICAID ==
[~2019-11-14] VITALS: Ht 167.6 cm; Wt 59.1 kg
[~2019-11-14 14:50] MED LIST changes: +UNABLE TO OBTAIN
[2019-11-14 15:44] LABS: BASOPHILS % (AUTO) 0.4 % (0-1); EOSINOPHILS # (AUTO) 0.3 X10'3 (0-0.9); EOSINOPHILS % (AUTO) 4.1 % (0-6); HEMATOCRIT 40.9 % (35.0-45.0); HEMOGLOBIN 13.7 g/dl (12.0-16.0); LYMPHOCYTES # (AUTO) 1.4 X10'3 (1.1-4.8); LYMPHOCYTES % (AUTO) 18.2 % (21-51); MEAN CORPUSCULAR HEMOGLOBIN 27.5 PG (27.0-31.0); MEAN CORPUSCULAR HGB CONC 33.4 g/dL (33.0-36.5); MEAN CORPUSCULAR VOLUME 82.4 FL (78-98); MEAN PLATELET VOLUME 7.6 FL (7.4-10.4); MONOCYTES # (AUTO) 0.6 X10'3 (0-0.9); NEUTROPHILS # (AUTO) 5.2 X10'3 (1.8-7.7); NEUTROPHILS % (AUTO) 69.3 % (42-75); PLATELET COUNT 294 X10'3 (140-440); RED BLOOD COUNT 4.97 X10'6 (4.20-5.60); RED CELL DISTRIBUTION WIDTH 15.9 % (11.5-14.5); WHITE BLOOD COUNT 7.5 X10'3 (4.5-11.0)
[2019-11-14 15:59] LABS: ALANINE AMINOTRANSFERASE 9 U/L (12-78); ALBUMIN 3.8 G/DL (3.4-5.0); ALKALINE PHOSPHATASE 99 IU/L (46-116); ANION GAP 8 (8-16); ASPARTATE AMINO TRANSFERASE 13 U/L (10-37); BILIRUBIN,TOTAL 0.5 MG/DL (0.1-1.0); BLOOD UREA NITROGEN 16 MG/DL (7-18); CALCIUM 8.7 MG/DL (8.5-10.1); CHLORIDE 100 MMOL/L (99-107); CREATININE 1.07 MG/DL (0.40-0.90); GLUCOSE 402 MG/DL (70-104); LIPASE 149 U/L (73-393); POTASSIUM 3.1 MMOL/L (3.5-5.1); SODIUM 138 MMOL/L (135-145); TOTAL CARBON DIOXIDE 30.5 MMOL/L (24-32); TOTAL PROTEIN 7.6 G/DL (6.4-8.2); eGFR 50 ML/MIN
[2019-11-14 17:43] LABS: CLARITY,URINE CLEAR (Clear); COLOR,URINE YELLOW (Yellow); GLUCOSE, URINE 500 mg/dl (Neg); KETONES,URINE TRACE mg/dl (Neg); LEUKOCYTE ESTERASE ,URINE NEGATIVE (Neg); NITRITES, URINE NEGATIVE (Neg); OCCULT BLOOD,URINE TRACE-INTACT (Neg); PROTEIN,URINE TRACE mg/dl (Neg); UROBILINOGEN,URINE 0.2 E.U/dL (0.2-1.0)
[2019-11-14 17:44] LABS: UA COLLECTION TYPE STRAIGHT CATH
[2019-11-14 17:55] LABS: BACTERIA,URINE NONE SEEN /HPF (Neg); RBC,URINE 0-2 /HPF (0-2); WBC,URINE 0-4 /HPF (0-4)
[2019-11-14 17:56] LABS: MUCUS STRANDS FEW /LPF (Neg); SQUAMOUS EPITHELIAL CELL,UR FEW /LPF (FEW)
[2019-11-14] MEDS ORDERED: magnesium oxide 400mg tablet PO ONE (18:00)
[2019-11-14] MEDS ORDERED: potassium Cl 20 mEq SR tablet PO ONE (18:00)
[2019-11-14] MEDS ORDERED: HYDROcodone/acetaminophen 5mg/325mg tablet PO ONE (18:00)
[2019-11-14 18:28] VITALS: BP 125/79
== END 2019-11-14 19:00 | disposition home or self-care (01) ==
LOC: ER 14:51
DX: R10.30 Lower abdominal pain, unspecified (principal); I48.91 Unspecified atrial fibrillation; E78.00 Pure hypercholesterolemia, unspecified; I10 Essential (primary) hypertension; I25.2 Old myocardial infarction; K21.9 Gastro-esophageal reflux disease without esophagitis; E11.9 Type 2 diabetes mellitus without complications; G89.29 Other chronic pain; Z98.61 Coronary angioplasty status; Z90.89 Acquired absence of other organs; Z98.890 Other specified postprocedural states; Z88.0 Allergy status to penicillin; Z88.2 Allergy status to sulfonamides; Z88.8 Allergy status to other drugs, medicaments and biological substances; Z79.82 Long term (current) use of aspirin; Z79.01 Long term (current) use of anticoagulants; Z79.899 Other long term (current) drug therapy
CPT/HCPCS: 36415; 74018; 80053; 81001; 83690; 85025; 99284

== ENCOUNTER 2019-12-02 14:25 | Emergency (ER) | payer MEDICARE, MEDICAID ==
[~2019-12-02] VITALS: Ht 165.1 cm; Wt 59.1 kg
[2019-12-02] MEDS ORDERED: normal saline 1000ML IV soln IVB ONE (14:45)
--- NOTE | 2019-12-02 15:10 | NUR ---
Cleaned pt of incontinent stool that she had prior to arrival in ED.
[2019-12-02 15:12] LABS: BASOPHILS % (AUTO) 0.6 % (0-1); EOSINOPHILS # (AUTO) 0.4 X10'3 (0-0.9); EOSINOPHILS % (AUTO) 4.6 % (0-6); HEMATOCRIT 44.4 % (35.0-45.0); HEMOGLOBIN 14.8 g/dl (12.0-16.0); MEAN CORPUSCULAR HEMOGLOBIN 27.4 PG (27.0-31.0); MEAN CORPUSCULAR HGB CONC 33.3 g/dL (33.0-36.5); MEAN CORPUSCULAR VOLUME 82.3 FL (78-98); MEAN PLATELET VOLUME 7.4 FL (7.4-10.4); MONOCYTES # (AUTO) 0.8 X10'3 (0-0.9); MONOCYTES % (AUTO) 10.4 % (2-12); NEUTROPHILS # (AUTO) 4.6 X10'3 (1.8-7.7); NEUTROPHILS % (AUTO) 58.4 % (42-75); PLATELET COUNT 415 X10'3 (140-440); RED CELL DISTRIBUTION WIDTH 16.1 % (11.5-14.5); WHITE BLOOD COUNT 7.8 X10'3 (4.5-11.0)
--- NOTE | 2019-12-02 15:12 | NUR ---
Pt transported to CT via wheelchair, with tech.
--- NOTE | 2019-12-02 15:25 | NUR ---
Pt returned from CT. Pt walked from wheelchair to bed with standby assist.
[2019-12-02 15:27] LABS: PARTIAL THROMBOPLASTIN TIME 26 SECONDS (22-32)
[2019-12-02 15:30] LABS: ALANINE AMINOTRANSFERASE 11 U/L (12-78); ALBUMIN 3.5 G/DL (3.4-5.0); ALBUMIN/GLOBULIN RATIO 0.8 (1.1-1.5); ALKALINE PHOSPHATASE 84 IU/L (46-116); ANION GAP 12 (8-16); ASPARTATE AMINO TRANSFERASE 21 U/L (10-37); BILIRUBIN,TOTAL 0.4 MG/DL (0.1-1.0); BLOOD UREA NITROGEN 15 MG/DL (7-18); BUN/CREATININE RATIO 14.9 (6.6-38.0); CALCIUM 9.3 MG/DL (8.5-10.1); CHLORIDE 100 MMOL/L (99-107); CREATININE 1.01 MG/DL (0.40-0.90); GLUCOSE 354 MG/DL (70-104); MAGNESIUM 1.1 MG/DL (1.5-2.4); SODIUM 142 MMOL/L (135-145); TOTAL CARBON DIOXIDE 30.2 MMOL/L (24-32); TOTAL PROTEIN 7.7 G/DL (6.4-8.2); eGFR 53 ML/MIN
[2019-12-02 15:30] LABS: CLARITY,URINE CLOUDY (Clear); COLOR,URINE YELLOW (Yellow); GLUCOSE, URINE 500 mg/dl (Neg); KETONES,URINE 15 mg/dl (Neg); LEUKOCYTE ESTERASE ,URINE SMALL (Neg); NITRITES, URINE NEGATIVE (Neg); OCCULT BLOOD,URINE SMALL (Neg); PROTEIN,URINE TRACE mg/dl (Neg)
[2019-12-02 15:31] LABS: UA COLLECTION TYPE STRAIGHT CATH
--- NOTE | 2019-12-02 15:35 | NUR ---
Lab called with a critical K+ of 3.[address] Patel aware, he will place orders.
[2019-12-02 15:36] LABS: BACTERIA,URINE FEW /HPF (Neg); MUCUS STRANDS NONE SEEN /LPF (Neg); RBC,URINE 0-2 /HPF (0-2); SQUAMOUS EPITHELIAL CELL,UR NONE SEEN /LPF (FEW); TRANSITIONAL EPI CELLS,URINE FEW /HPF; WBC CLUMPS,URINE FEW /HPF (NEGATIVE); WBC,URINE 20-30 /HPF (0-4); YEAST MANY /HPF (NEGATIVE)
[2019-12-02] MEDS: potassium Cl 10 mEq/100mL bag IV SCH ×2 (15:44→16:34)
[2019-12-02] MEDS ORDERED: normal saline 1000ml 1,000 ML IV ONE (16:10)
--- NOTE | 2019-12-02 17:28 | NUR ---
Pt was incontinent of urine. Cleaned pt up and gave new linens and gown. Pt denies any further needs at this time.
--- NOTE | 2019-12-02 17:37 | NUR ---
Dr Patel aware of pt's BP.
--- NOTE | 2019-12-02 17:45 | NUR ---
Tried to call Jeronimo, pt's boyfriend, the number we have is not a working number. Also, called [employer] per pt's request. No answer. Left voicemail stating, "This is Mary Beth from [facility]. Please call us back at [phone] as soon as you get this message."
[2019-12-02 17:52] VITALS: BP 169/87
== END 2019-12-02 18:08 | disposition home or self-care (01) ==
LOC: ER 14:25
DX: R53.1 Weakness (principal); R10.84 Generalized abdominal pain; E86.0 Dehydration; E87.6 Hypokalemia; R11.0 Nausea; I48.91 Unspecified atrial fibrillation; E78.00 Pure hypercholesterolemia, unspecified; I10 Essential (primary) hypertension; I25.2 Old myocardial infarction; K21.9 Gastro-esophageal reflux disease without esophagitis; E11.9 Type 2 diabetes mellitus without complications; G89.29 Other chronic pain; Z95.5 Presence of coronary angioplasty implant and graft; Z90.89 Acquired absence of other organs; Z88.0 Allergy status to penicillin; Z88.2 Allergy status to sulfonamides; Z79.82 Long term (current) use of aspirin; Z79.899 Other long term (current) drug therapy
CPT/HCPCS: 36415; 71045; 74176; 80053; 81001; 83605; 83735; 84145; 85025; 85610; 85730; 87040; 87088; 93005; 96365; 96366; 99285; J3480; J7030